=== PATIENT | male | born 1935 | race Caucasian/White ===

== ENCOUNTER 2017-03-11 13:59 | Emergency (ER) | payer MEDICARE, OTHER ==
[~2017-03-11] VITALS: Ht 167.6 cm; Wt 72.5 kg
[~2017-03-11 13:59] MED LIST: AMLO5TAB22 PO; ASPI81TA82 PO; ATOR40TA49 PO; CLOP75 PO; METO50TA PO; OMEP20TA39 PO; TERA5CAP3 PO
[2017-03-11 14:00] VITALS: BP 103/55; PULSE 67; RESP 16; TEMP 99.3; O2SAT 99
[2017-03-11] MEDS ORDERED: LIPI40TA PO (14:18)
[2017-03-11] MEDS ORDERED: TERA5CAP3 PO (14:18)
[2017-03-11] MEDS ORDERED: OMEP20TA93 PO (14:18)
[2017-03-11] MEDS ORDERED: AMLO5TAB2 PO (14:18)
[2017-03-11] MEDS ORDERED: PLAV75TA29 PO (14:18)
--- NOTE | 2017-03-11 14:40 | PD ---
HPI Chief Complaint: Musculoskeletal Complaint Time Seen by Provider: 14:25 Travel History International Travel<30 days: No Contact w/Intl Traveler<30days: No Traveled to known affect area: No History of Present Illness HPI Send 81-year-old man who presents to the emergency department complaining of pain swelling in his right leg. He had a knee replacement done several weeks ago. He's had ecchymosis bruising and swelling on the entire right leg. He had a DVT in the past in his upper extremity when he had his shoulder done. He is on Plavix. He has an IVC filter in place which was placed prior to his knee surgery given his history of previous DVT. He otherwise has been feeling generally well. He's has pain and swelling behind the knee. History Past Medical History Narrative Medical CAD, history of CABG. Social History Alcohol Use: Yes (DAILY 1-4 BEER) Tobacco Use: No Allergies-Medications (Allergen,Severity, Reaction): Coded Allergies: No Known Allergies (Unverified Adverse Reaction, Unknown, 03/11/17) Reported Meds & Prescriptions Reported Meds & Active Scripts Active Reported Omeprazole 20 Mg Tab 20 Mg PO DAILY Terazosin (Terazosin HCl) 5 Mg Cap 5 Mg PO HS Plavix (Clopidogrel Bisulfate) 75 Mg Tab 75 Mg PO DAILY Lipitor (Atorvastatin Calcium) 40 Mg Tab 40 Mg PO HS Amlodipine (Amlodipine Besylate) 5 Mg Tab 5 Mg PO DAILY Review of Systems Except as stated in HPI: all other systems reviewed are Neg Physical Exam Narrative GENERAL: Well-appearing 81 year-old woman, no acute distress. SKIN: Focused skin assessment warm/dry. NECK: Trachea midline. No JVD. CARDIOVASCULAR: Regular rate and rhythm. No murmur appreciated. RESPIRATORY: No accessory muscle use. Clear to auscultation. Breath sounds equal bilaterally. GASTROINTESTINAL: Abdomen soft, non-tender, nondistended. Hepatic and splenic margins not palpable. MUSCULOSKELETAL: No obvious deformities. Minimal Edema and dark ecchymosis in the right lower extremity. A little bit of pain behind the knee. Well-healing incision. NEUROLOGICAL: Awake and alert. No obvious cranial nerve deficits. Motor grossly within normal limits. Normal speech. PSYCHIATRIC: Appropriate mood and affect; insight and judgment normal. Data Data Last Documented VS Vital Signs Date Time Temp Pulse Resp B/P (MAP) Pulse Ox O2 Delivery O2 Flow Rate FiO2 03/11/17 14:00 99.3 67 16 103/55 (71) 99 Room Air Orders Orders Us Leg Venous Doppler (03/11/17 ) MDM Medical Decision Making Medical Screen Exam Complete: Yes Emergency Medical Condition: Yes Differential Diagnosis DVT, swelling from a hematoma, other Narrative Course Medical decision making 81 year-old woman presents emergency Department with pain and swelling in his right leg, rule out DVT. History of upper extremity DVT. He is an IVC filter in place. We'll check ultrasound. Jean-Claude Sarah MD Mar 11, 2017 14:40
--- NOTE | 2017-03-11 15:50 | RADRPT ---
EXAM DATE/TIME: 03/11/2017 15:09 [facility] COMPARISON: No previous studies available for comparison. INDICATIONS : Right leg pain and swelling. MEDICAL HISTORY : Hypercholesterolemia. Hypertension. Gastroesophageal reflux disease. Hearing loss. Transient ische risa attack. Anticoagulant therapy. Prostate cancer. Arthritis. Radiation therapy. Blood transfusions. SURGICAL HISTORY : CABG Back surgery. Bilateral cataract removal. ENCOUNTER: Initial ACUITY: 1 week PAIN SCORE: 4/10 LOCATION: Right leg. TECHNIQUE: Venous ultrasound of the leg was performed from the inguinal ligament to the proximal calf. Real-martin e, color Doppler and spectral tracing, compression and augmentation techniques were used. FINDINGS: There is normal compressibility of the deep venous system from the inguinal region to the proximal ca lf. No echogenic clot is seen in the lumen of the common femoral, femoral, popliteal, and posterior tibial veins. There is a normal response of the venous system to proximal and distal augmentation an d respiration. CONCLUSION: 1. No evidence of deep venous thrombosis. Nithin Vieyra MD on March 11, 2017 at 15:48 Board Certified Radiologist. This report was verified electronically.
--- NOTE | 2017-03-11 16:33 | PD ---
Physical Exam Date Seen by Provider: Mar 11, 2017 Time Seen by Provider: 16:29 Narrative GENERAL: Well-nourished, well-developed male in no acute distress. Afebrile. Ambulatory. SKIN: Focused skin assessment warm/dry. Large amount of ecchymosis of the right lower leg. Well-healed surgical scar over the right knee. HEAD: Normocephalic. EYES: No scleral icterus. No injection or drainage. NECK: Supple, trachea midline. No JVD or lymphadenopathy. CARDIOVASCULAR: Regular rate and rhythm without murmurs, gallops, or rubs. RESPIRATORY: Breath sounds equal bilaterally. No accessory muscle use. MUSCULOSKELETAL: No cyanosis. Mild edema of the right knee.. Mild tenderness to palpation behind the right knee. 2+ dorsalis pedis pulse. Full range of motion of the right knee. Data Data Last Documented VS Vital Signs Date Time Temp Pulse Resp B/P (MAP) Pulse Ox O2 Delivery O2 Flow Rate FiO2 03/11/17 14:00 99.3 67 16 103/55 (71) 99 Room Air Orders Orders Us Leg Venous Doppler (03/11/17 ) Ed Discharge Order (03/11/17 16:28) [facility] Medical Record Reviewed: Yes Supervised Visit with DIANE: No Narrative Course Patient signed out to me pending ultrasound results. In short, this is an 81- year-old male presented to the emergency room for evaluation of right knee pain for the past few days. Denies trauma or injury. He has been in physical therapy for knee surgery 6 weeks ago. Concerned about DVT. He is currently on Plavix and has IVC filter in place for history of DVTs. States pain is minimal and well controlled. Declined anything more than Tylenol for pain. Physical exam is reassuring. There is a large amount of ecchymosis to the right lower leg but no erythema or edema. Patient is 4 range of motion. Right lower extremity is neurovascularly intact with 2+ dorsalis pedis pulse. He was reassured after ultrasound was negative and told to follow-up with his primary care physician. Told to return in 1 week for repeat ultrasound if symptoms persist. He understands and agrees to plan. Diagnosis Primary Impression: Right leg pain Referrals: Primary Care Physician Additional Instruction: Rest and drink plenty of fluids. Take Tylenol as directed, as needed for pain. Follow-up with a primary care physician. Return to the emergency room for worsening symptoms. Disposition: 01 DISCHARGE HOME Condition: Stable Jena Escobar Mar 11, 2017 16:33
== END 2017-03-11 17:00 | disposition home or self-care (01) ==
LOC: NEPD 13:59
DX: M79.604 Pain in right leg (principal); M79.89 Other specified soft tissue disorders; I25.10 Atherosclerotic heart disease of native coronary artery without angina pectoris; Z86.718 Personal history of other venous thrombosis and embolism; Z79.02 Long term (current) use of antithrombotics/antiplatelets; Z79.899 Other long term (current) drug therapy
CPT/HCPCS: 93971; 99284

== ENCOUNTER 2017-04-29 09:54 | Inpatient (IN) | payer MEDICARE, OTHER ==
[2017-04-29] VITALS (10 sets, daily range): BP systolic 157–194; BP diastolic 72–84; PULSE 59–76; RESP 14–18; TEMP 98–98.3; O2SAT 97–98
[~2017-04-29] VITALS: Ht 165.1 cm; Wt 74.2 kg
[~2017-04-29 09:54] MED LIST changes: +AMLO5TAB2 PO; -AMLO5TAB22 PO; -ASPI81TA82 PO; -ATOR40TA49 PO; -CLOP75 PO; +LIPI40TA PO; -METO50TA PO; -OMEP20TA39 PO; +OMEP20TA93 PO; +PLAV75TA29 PO
[2017-04-29] MEDS ORDERED: SODIUM CHLOR 0.9% 1000 ML INJ 1,000 ML IV ONE (10:18)
--- NOTE | 2017-04-29 10:21 | PD ---
HPI Chief Complaint: Neuro Symptoms/ Deficits Time Seen by Provider: 10:18 Travel History International Travel<30 days: No Contact w/Intl Traveler<30days: No Traveled to known affect area: No History of Present Illness HPI The patient is 81 years old. He has a history of hypertension hyperlipidemia prostate cancer and history of TIA as well. The patient's son picked him up today as the patient was on his way to physical therapy. Upon sitting himself and that son's car observation of fatigue and mumbling/slurred speech was observed and the patient was brought here. Symptoms improved somewhat en route to the ER. The patient takes Plavix hours unsure about any other anticoagulant usage. Patient was last seen normal last night. The woke up this morning to attend a doctor's appointment in [place] at 6:30AM and at that time the patient was asleep. Such that the onset of symptoms was at least 4 hours prior to ER arrival. PFSH Past Medical History Hx Anticoagulant Therapy: Yes Arthritis: Yes Cancer: Yes (prostate) Cardiovascular Problems: Yes High Cholesterol: Yes Cerebrovascular Accident: No Diabetes: No Diminished Hearing: Yes (HEARING AIDS OCCASIONALLY) Endocrine: No Gastrointestinal Disorders: Yes Genitourinary: Yes (hx of prostate cancer) Hepatitis: No Hiatal Hernia: No Hypertension: Yes Immune Disorder: No Implanted Vascular Access Dvce: Yes Musculoskeletal: No Neurologic: Yes (tia mar 2014) Psychiatric: No Reproductive: No Respiratory: No Immunizations Current: No Radiation Therapy: Yes Thyroid Disease: No Past Surgical History AICD: No Body Medical Devices: hardware in the back Cardiac Surgery: Yes (quadruple cardiac by-pass) Coronary Artery Bypass Graft: Yes (QUAD BYPASS) Eye Surgery: Yes (ruperto cataract surgery) Joint Replacement: No Pacemaker: No Other Surgery: Yes Social History Alcohol Use: Yes (DAILY 1-4 BEER) Tobacco Use: No Substance Use: No Allergies-Medications (Allergen,Severity, Reaction): Coded Allergies: No Known Allergies (Unverified Adverse Reaction, Unknown, 04/29/17) Reported Meds & Prescriptions Reported Meds & Active Scripts Active Reported Omeprazole 20 Mg Tab 20 Mg PO DAILY Terazosin (Terazosin HCl) 5 Mg Cap 5 Mg PO HS Lipitor (Atorvastatin Calcium) 40 Mg Tab 40 Mg PO HS Amlodipine (Amlodipine Besylate) 5 Mg Tab 5 Mg PO DAILY Review of Systems Except as stated in HPI: all other systems reviewed are Neg General / Constitutional: No: Fever Gastrointestinal: No: Nausea Physical Exam Narrative GENERAL: 81-year-old male mild distress SKIN: Warm and dry. HEAD: Atraumatic. Normocephalic. EYES: Pupils equal and round. No scleral icterus. No injection or drainage. ENT: No nasal bleeding or discharge. Mucous membranes pink and moist. NECK: Trachea midline. No JVD. CARDIOVASCULAR: Regular rate and rhythm. RESPIRATORY: No accessory muscle use. Clear to auscultation. Breath sounds equal bilaterally. GASTROINTESTINAL: Abdomen soft, non-tender, nondistended. Hepatic and splenic margins not palpable. MUSCULOSKELETAL: No gross deformity. Normal ROM. NEUROLOGICAL: The extraocular muscles are normal. The pupils are normal. The speech is slightly dysarthric. There is minimal strength on the left side involving upper extremities however lower extremity exam is unremarkable. PSYCHIATRIC: Appropriate mood and affect; insight and judgment normal. Data Data Last Documented VS VS reviewed Orders Orders Activity Bed Rest (04/29/17 ) Electrocardiogram (04/29/17 ) I-Stat Creatinine (04/29/17 10:18) I-Stat Profile (04/29/17 10:18) Prothrombin Time / Inr (Pt) (04/29/17 10:18) Act Partial Throm Time (Ptt) (04/29/17 10:18) Complete Blood Count With Diff (04/29/17 10:18) Fibrinogen (04/29/17 10:18) Creatine Kinase (Cpk) (04/29/17 10:18) Troponin I (04/29/17 10:18) Type And Screen (04/29/17 10:18) Ct Brain W/O Iv Contrast(Rout) (04/29/17 ) Cta Brain W Iv Contrast W 3d (04/29/17 10:18) Consult Neurology (04/29/17 ) Blood Glucose (04/29/17 10:18) Ecg Monitoring (04/29/17 10:18) Neuro Checks Q2HX12,Q4H (04/29/17 10:18) Nursing Bedside Swallow Assess .ONCE (04/29/17 10:18) Iv Access Insert/Monitor (04/29/17 10:18) NPO (04/29/17 10:18) Oximetry (04/29/17 10:18) Oxygen Administration (04/29/17 10:18) Sodium Chlor 0.9% 1000 Ml Inj (Ns 1000 M (04/29/17 10:18) Resp Oxygen Pako C Titrat 1-4 L (04/29/17 10:18) Cath For Specimen (04/29/17 10:18) (Hub Use Only)Inp Phy Cons/Ref (04/29/17 ) Cta Neck W Iv Contrast W 3d (04/29/17 10:27) Iodixanol 320 Inj (Rad Ct) (Visipaque 32 (04/29/17 10:46) Admit Order (Ed Use Only) (04/29/17 ) Bindery Leadperson / Telemetry QUYNH.Q8H (04/29/17 12:28) Vital Signs (Adult) Q4H (04/29/17 12:28) Activity Oob With Assistance (04/29/17 12:28) Labs Laboratory Tests Test 04/29/17 10:20 White Blood Count 7.7 TH/MM3 Red Blood Count 3.42 MIL/MM3 Hemoglobin 12.2 GM/DL Bedside Hemoglobin 11.9 G/DL Hematocrit 35.2 % Bedside Hematocrit 35.0 % Mean Corpuscular Volume 102.9 FL Mean Corpuscular Hemoglobin 35.6 PG Mean Corpuscular Hemoglobin Concent 34.6 % Red Cell Distribution Width 13.3 % Platelet Count 214 TH/MM3 Mean Platelet Volume 9.3 FL Neutrophils (%) (Auto) 56.7 % Lymphocytes (%) (Auto) 23.1 % Monocytes (%) (Auto) 7.7 % Eosinophils (%) (Auto) 11.8 % Basophils (%) (Auto) 0.7 % Neutrophils # (Auto) 4.4 TH/MM3 Lymphocytes # (Auto) 1.8 TH/MM3 Monocytes # (Auto) 0.6 TH/MM3 Eosinophils # (Auto) 0.9 TH/MM3 Basophils # (Auto) 0.1 TH/MM3 CBC Comment DIFF FINAL Differential Comment Prothrombin Time 10.0 SEC Prothromb Time International Ratio 1.0 RATIO Activated Partial Thromboplast Time 26.1 SEC Fibrinogen 346 mg/dL Bedside Sodium 134 MMOL/L Bedside Potassium 5.0 MMOL/L Bedside Chloride 99 MMOL/L Bedside Blood Urea Nitrogen 19 MG/DL Bedside Creatinine 1.5 MG/DL Bedside Glucose 98 MG/DL Hemoglobin A1c 4.8 % Total Creatine Kinase 93 U/L Troponin I 0.02 NG/ML MDM Medical Screen Exam Complete: Yes Emergency Medical Condition: Yes Differential Diagnosis Stroke, TIA, metabolic abnormality Narrative Course CBC & BMP Diagram 04/29/17 10:20 The patient is not a TPA candidate. He'll be admitted to the hospitalist service. On Plavix and will require neurology R hospitalist determination for usage aspirin. Critical Care Narrative Aggregate critical care time was 40 minutes. Time to perform other separately billable procedures was not included in the critical care time. My time did not include minutes spent treating any other patients simultaneously or on activities that did not directly contribute to the patient's treatment. The services I provided to this patient were to treat and/or prevent clinically significant deterioration that could result in: Permanent weakness I provided critical care services requiring my management, as noted below: Chart data review, documentation time, medication orders and management, vital sign assessments/reviewing monitor data, ordering and reviewing lab tests, ordering and interpreting/reviewing x-rays and diagnostic studies, care of the patient and discussion of the patient with the admitting physicians. Stroke Alert NIHSS NIH Stroke Scale Result: 2 NIHSS Time Completed: 10:20 Diagnosis Diagnosis: Primary Impression: Chronic ischemic right MCA stroke Additional Impressions: TIA (transient ischemic attack) Carotid artery stenosis Scripts Thiamine HCl (Gnp Vitamin B-1) 100 Mg Tab 100 MG PO DAILY for Alcohol Detox, #30 TAB Prov: Tucker Merino MD 04/30/17 Dipyridamole-Aspirin (Aggrenox) 200-25 Mg Cap 1 CAP PO Q12HR for Prevent Blood Clot, #60 CAP Prov: Tucker Merino MD 04/30/17 Saul Sanchez MD Apr 29, 2017 10:21
--- NOTE | 2017-04-29 10:40 | RADRPT ---
EXAM DATE/TIME: 04/29/2017 10:26 [facility] COMPARISON: CT BRAIN W/O CONTRAST, April 12, 2014, 20:01. INDICATIONS : Stroke alert, slurred speech and aphasia. RADIATION DOSE: 36.29 CTDIvol (mGy) This report was called by Dr. Zhang to Sanchez at 1035 MEDICAL HISTORY : Non-responsive. SURGICAL HISTORY : Non-responsive. ENCOUNTER: Initial ACUITY: 1 day PAIN SCALE: Non-responsive LOCATION: cranial TECHNIQUE: Multiple contiguous axial images were obtained of the head. Using automated exposure control and adj ustment of the mA and/or kV according to patient size, radiation dose was kept as low as reasonably a chievable to obtain optimal diagnostic quality images. DICOM format image data is available electro nically for review and comparison. FINDINGS: There is encephalomalacia in the mid to high convexity right parietal region. There is no evidence of intracranial hemorrhage or mass. There is nothing to suggest acute infarction. The extracranial stru ctures appear benign and intact. CONCLUSION: Old right parietal stroke. No acute intracranial findings. Musa Zhang MD on April 29, 2017 at 10:34 Board Certified Radiologist. This report was verified electronically.
[2017-04-29] MEDS ORDERED: IODIXANOL 320 MG/ML 10 ML VIAL (for Rad CT) IVCONTRAST ONE (10:46)
[2017-04-29 10:51] LABS: AUTOMATED NEUTROPHIL # 4.4 TH/MM3 (1.8-7.7); BASOPHIL # 0.1 TH/MM3 (0-0.2); BASOPHIL % 0.7 % (0.0-2.0); EOSINOPHIL # 0.9 TH/MM3 (0-0.4); EOSINOPHIL % 11.8 % (0.0-4.0); HEMATOCRIT 35.2 % (39.0-51.0); HEMOGLOBIN 12.2 GM/DL (13.0-17.0); LYMPH % 23.1 % (9.0-44.0); LYMPHOCYTE # 1.8 TH/MM3 (1.0-4.8); MEAN CELL VOLUME 102.9 FL (80.0-100.0); MEAN CORPUSCULAR HEMOGLOBIN 35.6 PG (27.0-34.0); MEAN CORPUSCULAR HGB CONC 34.6 % (32.0-36.0); MEAN PLATELET VOLUME 9.3 FL (7.0-11.0); MONO % 7.7 % (0.0-8.0); MONOCYTE # 0.6 TH/MM3 (0-0.9); NEUT % 56.7 % (16.0-70.0); PLATELET COUNT 214 TH/MM3 (150-450); RED BLOOD COUNT 3.42 MIL/MM3 (4.50-5.90); RED CELL DISTRIBUTION WIDTH 13.3 % (11.6-17.2); WHITE BLOOD COUNT 7.7 TH/MM3 (4.0-11.0)
--- NOTE | 2017-04-29 11:00 | RADRPT ---
EXAM DATE/TIME: 04/29/2017 10:26 [facility] COMPARISON: MRA BRAIN W/O CONTRAST, April 13, 2014, 16:56. INDICATIONS : Stroke alert. Slurred speech, aphasia. IV CONTRAST: 90 cc Visipaque (iodixanol) IV RADIATION DOSE: 28.04 CTDIvol (mGy) MEDICAL HISTORY : Non-responsive. SURGICAL HISTORY : Non-responsive. ENCOUNTER: Initial ACUITY: 1 day PAIN SCALE: 0/10 LOCATION: cranial TECHNIQUE: Volumetric scanning was performed using a multi-row detector CT scanner. The data was post processed with a variety of visualization algorithms including full volume maximum intensity projection, multi -planar sliding thin slab reformation, curved planar reformation, and surface rendering techniques. Using automated exposure control and adjustment of the mA and/or kV according to patient size, radiat ion dose was kept as low as reasonably achievable to obtain optimal diagnostic quality images. DICO M format image data is available electronically for review and comparison. FINDINGS: Anterior circulation: Diffusely calcified intracranial carotid arteries with likely moderate stenosis om the right. Flow ex tends to the middle and anterior cerebral arteries. Left A1 segment is diffusely small in dre similar to prior exam consistent with a hyperplasia. There is no evidence for aneurysm, vessel truncation or stenosis, and no evidence for vascular malformation. Posterior circulation: Symmetric distal vertebral arteries with flow extending to basilar artery. origin of the left FX ARTIST. There is no evidence for aneurysm, vessel truncation or stenosis, and no evidence for vascular m alformation. CONCLUSION: 1. Diffusely calcified intracranial carotid arteries with likely moderate stenosis on the right. 2. Redemonstration of hypoplastic left A1 segment. 3. No large vessel occlusion or significant intracranial flow-limiting stenosis. Ej Veliz MD on April 29, 2017 at 10:53 Board Certified Radiologist. This report was verified electronically.
--- NOTE | 2017-04-29 11:11 | RADRPT ---
EXAM DATE/TIME: 04/29/2017 10:26 [facility] COMPARISON: No previous studies available for comparison. INDICATIONS : Stoke alert. Slurred speech, aphasia IV CONTRAST: 90 cc Visipaque (iodixanol) IV RADIATION DOSE: 28.04 CTDIvol (mGy) MEDICAL HISTORY : Non-responsive. SURGICAL HISTORY : Non-responsive. ENCOUNTER: Initial ACUITY: 1 day PAIN SCALE: 0/10 LOCATION: neck Elevated flow velocities and ICA/CCA ratios have been found to correlate with increased degrees of vessel stenosis, calculated as percentage of diameter relative to a normal segment of distal ICA/CCA. TECHNIQUE: Volumetric scanning was performed using a multirow detector CT scanner. The data was post processed with a variety of visualization algorithms including full-volume maximum intensity projection, multip lanar sliding thin-slab reformation, curved-planar reformation, and surface-rendering techniques. Us ing automated exposure control and adjustment of the mA and/or kV according to patient size, radiatio n dose was kept as low as reasonably achievable to obtain optimal diagnostic quality images. DICOM f ormat image data is available electronically for review and comparison. FINDINGS: AORTIC ARCH: 3 vessel arch anatomy with calcified plaque at the origin of the right brachiocephalic and left commo n carotid arteries. No significant flow-limiting stenosis. RIGHT CAROTID: Scattered calcified plaque in the distal common carotid artery without significant flow-limiting sten osis. Diffuse calcified plaque in the carotid bulb extending to the origin of the internal and heat treat technician al carotid arteries. The internal carotid origin plaque is ulcerated. There is resultant up to 50% st enosis of the internal carotid origin. Flow extends to the skull base. External carotid artery origin is severely stenosed. LEFT CAROTID: Scattered mixed plaque in the distal common carotid artery without significant flow-limiting stenosis . Calcified plaque in the distal bulb extending to the origin of the internal and external carotid ar teries. There is resultant approximate 60% stenosis of the left internal carotid origin likely exagge rated by some tortuosity. Flow extends to the skull base. There is moderate stenosis of the external carotid origin. VERTEBRALS: Asymmetric which arteries with small caliber left vertebral artery. There is mild stenosis of the lef t vertebral origin secondary to calcified plaque. Left vertebral artery appears to terminate in PICA. CONCLUSION: 1. Calcified plaque in the right carotid bulb extending to the origin of the internal and external ca rotid arteries. There is a prominent ulcerated plaque in the right internal carotid origin. Resultant up to 50% stenosis of the right internal carotid origin. 2. Calcified plaque in the left carotid bulb extending to the origin of the internal and external car otid arteries. Resultant up to 60% stenosis of the left internal carotid origin likely exaggerated by some tortuosity. 3. Dominant right vertebral artery. Ej Veliz MD on April 29, 2017 at 10:58 Board Certified Radiologist. This report was verified electronically.
[2017-04-29 11:18] LABS: TROPONIN I 0.02 NG/ML (0.02-0.05)
[2017-04-29] MEDS ORDERED: SODIUM CHLORIDE 0.9% FLUSH 10 ML FLUSH IV FLUSH PRN (12:30)
[2017-04-29] MEDS ORDERED: DEXTROSE 50% IN WATER 50 ML VIAL(D50) IV PUSH PRN (12:30)
[2017-04-29] MEDS ORDERED: ENALAPRILAT 1.25 MG/ML VIAL IV PUSH PRN (12:30)
[2017-04-29] MEDS ORDERED: GLUCAGON 1 MG/ML VIAL OTHER PRN (12:30)
[2017-04-29] MEDS ORDERED: BISACODYL 10 MG SUPP RECTAL PRN (12:45)
[2017-04-29] MEDS ORDERED: SENNOSIDES 8.6 MG TAB PO PRN (12:45)
[2017-04-29] MEDS ORDERED: ONDANSETRON HCL 4 MG/2 ML VIAL IVP PRN (12:45)
[2017-04-29] MEDS ORDERED: NALOXONE HCL 0.4 MG/ML AMP IV PUSH PRN (12:45)
[2017-04-29] MEDS ORDERED: LACTULOSE SYRUP 20 GM/30 ML CUP PO PRN (12:45)
[2017-04-29] MEDS ORDERED: ACETAMINOPHEN 325 MG TAB PO PRN (12:45)
[2017-04-29] MEDS: SODIUM CHLOR 0.9% 1000 ML INJ 1,000 ML IV SCH (13:00)
--- NOTE | 2017-04-29 13:44 | HHI.HP ---
HPI Service [facility] Primary Care Physician Unknown Admission Diagnosis TIA Diagnoses: Chief Complaint: Strokelike symptoms Travel History International Travel<30 Days: No Contact w/Intl Traveler <30 Da: No Traveled to Known Affected Are: No History of Present Illness This is a 81-year-old male with a history of TIA, hyperlipidemia, hypertension and prostate cancer status post radiation therapy. Patient recently had right knee surgery and was on his way to outpatient physical therapy when his son noted patient looking tired and mumbling with slurred speech. He was disoriented and had difficulty writing check. He was immediately brought to the emergency room room and over the course of time his symptoms resolved. At this time, he has no complaints. He swears compliance with medications though he is not sure what kind of antiplatelet he is on maybe Plavix. He was on aspirin before. Also given Eliquis for DVT treatment 2 years ago after undergoing left shoulder surgery. All other systems reviewed negative. Seen with family. Son provided most of the history. Review of Systems Except as stated in HPI: all other systems reviewed are Neg Past Family Social History Past Medical History As previously mentioned Past Surgical History As previously mentioned. Cataract surgery, back surgery and IVC filter prior to right knee surgery Reported Medications Reported Meds & Active Scripts Active Reported Omeprazole 20 Mg Tab 20 Mg PO DAILY Terazosin (Terazosin HCl) 5 Mg Cap 5 Mg PO HS Lipitor (Atorvastatin Calcium) 40 Mg Tab 40 Mg PO HS Amlodipine (Amlodipine Besylate) 5 Mg Tab 5 Mg PO DAILY Allergies: Coded Allergies: No Known Allergies (Unverified Adverse Reaction, Unknown, 04/29/17) Family History No CVA Social History Does not smoke. Drinks 1-4 beers a day. Physical Exam Vital Signs Vital Signs Date Time Temp Pulse Resp B/P (MAP) Pulse Ox O2 Delivery O2 Flow Rate FiO2 04/29/17 12:12 69 18 166/73 (104) 98 Nasal Cannula 2.00 04/29/17 11:43 68 18 194/77 (116) 97 Nasal Cannula 2.00 04/29/17 10:30 97 Room Air 1/9/18 10:30 97 Room Air 04/29/17 10:22 98 Nasal Cannula 2.00 04/29/17 10:22 98 2.00 04/29/17 10:17 73 18 192/78 (116) 98 Room Air 04/29/17 10:15 87 18 97 Room Air 04/29/17 09:56 98.0 65 14 157/72 (100) 97 Physical Exam GENERAL: This is a well-nourished, well-developed patient, in no apparent distress. SKIN: No rashes, ecchymoses or lesions. Cool and dry. HEAD: Atraumatic. Normocephalic. No temporal or scalp tenderness. EYES: Pupils equal round and reactive. Extraocular motions intact. No scleral icterus. No injection or drainage. ENT: Nose without bleeding, purulent drainage or septal hematoma. Throat without erythema, tonsillar hypertrophy or exudate. Uvula midline. Airway patent. NECK: Trachea midline. No JVD or lymphadenopathy. Supple, nontender, no meningeal signs. CARDIOVASCULAR: Regular rate and rhythm without murmurs, gallops, or rubs. RESPIRATORY: Clear to auscultation. Breath sounds equal bilaterally. No wheezes , rales, or rhonchi. GASTROINTESTINAL: Abdomen soft, non-tender, nondistended. No guarding. MUSCULOSKELETAL: Extremities without clubbing, cyanosis, or edema. No joint tenderness, effusion, or edema noted. No calf tenderness. Negative Homans sign bilaterally. NEUROLOGICAL: Awake and alert. Cranial nerves II through XII intact. Motor and sensory grossly within normal limits. Five out of 5 muscle strength in all muscle groups. Normal speech. Laboratory Laboratory Tests Test 04/29/17 10:20 White Blood Count 7.7 Red Blood Count 3.42 Hemoglobin 12.2 Bedside Hemoglobin 11.9 Hematocrit 35.2 Bedside Hematocrit 35.0 Mean Corpuscular Volume 102.9 Mean Corpuscular Hemoglobin 35.6 Mean Corpuscular Hemoglobin Concent 34.6 Red Cell Distribution Width 13.3 Platelet Count 214 Mean Platelet Volume 9.3 Neutrophils (%) (Auto) 56.7 Lymphocytes (%) (Auto) 23.1 Monocytes (%) (Auto) 7.7 Eosinophils (%) (Auto) 11.8 Basophils (%) (Auto) 0.7 Neutrophils # (Auto) 4.4 Lymphocytes # (Auto) 1.8 Monocytes # (Auto) 0.6 Eosinophils # (Auto) 0.9 Basophils # (Auto) 0.1 CBC Comment DIFF FINAL Differential Comment Prothrombin Time 10.0 Prothromb Time International Ratio 1.0 Activated Partial Thromboplast Time 26.1 Fibrinogen 346 Bedside Sodium 134 Bedside Potassium 5.0 Bedside Chloride 99 Bedside Blood Urea Nitrogen 19 Bedside Creatinine 1.5 Bedside Glucose 98 Total Creatine Kinase 93 Troponin I 0.02 Result Diagram: 04/29/17 1020 Imaging Last Impressions Neck CTA 04/29/17 1027 Signed Impressions: Service Date/Time: Saturday, April 29, 2017 10:26 - CONCLUSION: 1. Calcified plaque in the right carotid bulb extending to the origin of the internal and external carotid arteries. There is a prominent ulcerated plaque in the right internal carotid origin. Resultant up to 50%% stenosis of the right internal carotid origin. 2. Calcified plaque in the left carotid bulb extending to the origin of the internal and external carotid arteries. Resultant up to 60%% stenosis of the left internal carotid origin likely exaggerated by some tortuosity. 3. Dominant right vertebral artery. Ej Veliz MD Head CTA 04/29/17 1018 Signed Impressions: Service Date/Time: Saturday, April 29, 2017 10:26 - CONCLUSION: 1. Diffusely calcified intracranial carotid arteries with likely moderate stenosis on the right. 2. Redemonstration of hypoplastic left A1 segment. 3. No large vessel occlusion or significant intracranial flow-limiting stenosis. Ej Veliz MD Head Magnetic Resonance Angiography 04/29/17 0000 Signed Impressions: Service Date/Time: Saturday, April 29, 2017 14:48 - CONCLUSION: 1. 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 2. Otherwise, intracranial vessels are all patent no aneurysmal disease. No change from prior. Ricky Becerra MD Head CT 04/29/17 0000 Signed Impressions: Service Date/Time: Saturday, April 29, 2017 10:26 - CONCLUSION: Old right parietal stroke. No acute intracranial findings. Musa Zhang MD Carotid Artery Ultrasound 04/29/17 0000 Signed Impressions: Service Date/Time: Saturday, April 29, 2017 15:11 - CONCLUSION: 1. Extensive calcification throughout both carotid systems. 2. Doppler velocities would suggest high-grade stenosis in the external carotid arteries bilaterally. There does not appear to be a hemodynamically significant stenosis in the internal carotid despite the dense calcification, however. 3. Waveforms of the cervical vessels show very little diastolic flow, a pattern more characteristic of the external circulation and suggestive of a high resistance vascular flow. This has progressed from the 2014 exam. Findings in all 4 cervical vessels may indicate increased intracranial pressure. CTA of the cervical vessels could be performed for further characterization if clinically warranted Ricky Becerra MD Brain MRI 04/29/17 0000 Signed Impressions: Service Date/Time: Saturday, April 29, 2017 14:48 - CONCLUSION: 1. Stable area of infarction involving the right posterior temporal, occipital and parietal lobes. 2. No acute hemorrhage, mass infarction. MD Angela Gordon VTE Risk Assessment Caprini VTE Risk Assessment: Mod/High Risk (score >= 2) Caprini Risk Assessment Model Point Value = 1 Point Value = 2 Point Value = 3 Point Value = 5 Age 41-60 Minor surgery BMI > 25 kg/m2 Swollen legs Varicose veins or History of unexplained or recurrent spontaneous Oral contraceptives or hormone replacement Sepsis (< 1 month) Serious lung disease, including pneumonia (< 1 month) Abnormal pulmonary function Acute myocardial infarction Congestive heart failure (< 1 month) History of inflammatory bowel disease Medical patient at bed rest Age 61-74 Arthroscopic surgery Major open surgery (> 45 min) Laparoscopic surgery (> 45 min) Malignancy Confined to bed (> 72 hours) Immobilizing plaster cast Central venous access Age >= 75 History of VTE Family history of VTE Factor V Leiden Prothrombin [id number] Lupus anticoagulant Anticardiolipin antibodies Elevated serum homocysteine Heparin-induced thrombocytopenia Other congenital or acquired thrombophilia Stroke (< 1 month) Elective arthroplasty Hip, pelvis, or leg fracture Acute spinal cord injury (< 1 month) Prophylaxis Regimen Total Risk Factor Score Risk Level Prophylaxis Regimen 0-1 Low Early ambulation 2 Moderate Order ONE of the following: *Sequential Compression Device (SCD) *Heparin 5000 units SQ BID 3-4 Higher Order ONE of the following medications: *Heparin 5000 units SQ TID *Enoxaparin/Lovenox 40 mg SQ daily (WT < 150 kg, CrCl > 30 mL/min) *Enoxaparin/Lovenox 30 mg SQ daily (WT < 150 kg, CrCl > 10-29 mL/min) *Enoxaparin/Lovenox 30 mg SQ BID (WT < 150 kg, CrCl > 30 mL/min) AND/OR *Sequential Compression Device (SCD) 5 or more Highest Order ONE of the following medications: *Heparin 5000 units SQ TID (Preferred with Epidurals) *Enoxaparin/Lovenox 40 mg SQ daily (WT < 150 kg, CrCl > 30 mL/min) *Enoxaparin/Lovenox 30 mg SQ daily (WT < 150 kg, CrCl > 10-29 mL/min) *Enoxaparin/Lovenox 30 mg SQ BID (WT < 150 kg, CrCl > 30 mL/min) AND *Sequential Compression Device (SCD) Assessment and Plan Problem List: (1) TIA (transient ischemic attack) ICD Code: G45.9 - TIA (transient ischemic attack) Status: Acute (2) Accelerated hypertension ICD Code: I10 - Accelerated hypertension Status: Acute Assessment and Plan This is a 81-year-old male with a history of TIA, hyperlipidemia and hypertension. He presented with strokelike symptoms resolved over a brief period of time while in the ED. TIA vs CVA with hx TIA. Neuro symptoms are resolved. Discussed with neurology , aspirin 1 and start Aggrenox and obtain stroke workup including EEG. Permissive hypertension. Consult vascular surgery regarding abnormal bilateral carotid surgery with ulcerated plaque of the right carotid. Obtain carotid sonogram. Check A1c and lipid profile. Risk factor modifications. PT, OT and ST eval. Mild hyponatremia sodium 134. Monitor Chronic kidney disease stage III. Nonoliguric. Continue IV hydration specially after receiving contrast. Avoid nephrotoxins. Repeat BMP and mag in the morning. Follow-up urinalysis. Elevated MCV with history of alcohol abuse. Counseled. CIWA protocol. Chronic medical conditions of hyperlipidemia, hypertension and prostate cancer status post radiation therapy. Continue outpatient medications as appropriate DVT prophylaxis with SCD. Pharmacological prophylaxis if okay with neurology pending ischemic workup Discussed Condition With Patient, family and neurology Tucker Merino MD Apr 29, 2017 13:44
[2017-04-29] MEDS ORDERED: LORazepam 2 MG TAB PO PRN (13:45)
[2017-04-29] MEDS ORDERED: LORazepam 2 MG/ML VIAL IV PUSH PRN ×4 (13:45)
[2017-04-29] MEDS ORDERED: HALOPERIDOL LACTATE 5 MG/ML AMP IM PRN (13:45)
[2017-04-29] MEDS ORDERED: LORazepam 1 MG TAB PO PRN (13:45)
[2017-04-29] MEDS ORDERED: FLUMAZENIL 0.5 MG/5 ML VIAL IV PUSH PRN (13:45)
[2017-04-29] MEDS ORDERED: CLOPIDOGREL 75 MG TAB PO ONE (14:00)
[2017-04-29] MEDS ORDERED: LORazepam 2 MG/ML VIAL IV PUSH ONE (14:00)
[2017-04-29] MEDS: ACETAMINOPHEN 325 MG TAB PO PRN (14:41)
[2017-04-29] MEDS ORDERED: ASPIRIN 81 MG CHEW TAB CHEW ONE (15:00)
--- NOTE | 2017-04-29 15:47 | RADRPT ---
EXAM DATE/TIME: 04/29/2017 14:48 [facility] COMPARISON: MRA BRAIN W/O CONTRAST, April 13, 2014, 16:56. INDICATIONS : Aphasia. MEDICAL HISTORY : Carcinoma, prostate. SURGICAL HISTORY : CABG Fusion, lumbar. ENCOUNTER: Initial ACUITY: 1 day PAIN SCORE: 0/10 LOCATION: head Please note a normal MRA of the brain does not entirely exclude the possibility of a small aneurysm, nor the possibility of distal intracranial vessel disease. TECHNIQUE: 3D time of flight MRA was performed. Source images, multiplanar STS MIP, and 3D volume MIP reconstru ctions were reviewed. FINDINGS: There is excellent visualization of the major intracranial arteries out to the second-order branch ve ssels. There is no evidence for aneurysm, vessel truncation or stenosis, and no evidence for vascula r malformation. Anatomic variant of the [place] of [place] with a congenitally atretic left A1 segment. Left P1 segment appears to be congenitally absent as does the right posterior communicating artery. The sole blood s upply to the left posterior cerebral artery is via the widely patent left posterior communicating art jose. Patient is right vertebral dominant with a very diminutive but patent left vertebral. CONCLUSION: 1. 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 2. Otherwise, intracranial vessels are all patent no aneurysmal disease. No change from prior. Ricky Becerra MD on April 29, 2017 at 15:37 Board Certified Radiologist. This report was verified electronically.
--- NOTE | 2017-04-29 15:56 | RADRPT ---
EXAM DATE/TIME: 04/29/2017 15:11 [facility] COMPARISON: US CAROTID ARTERIES, April 12, 2014, 21:55. INDICATIONS : Cerebrovascular accident. MEDICAL HISTORY : Hypercholesterolemia. Hypertension. Arthritis. Prostate cancer. SURGICAL HISTORY : CABG. IVC Filter placement. Lower back surgery. ENCOUNTER: Subsequent ACUITY: 1 day PAIN SCORE: 1/10 LOCATION: Bilateral neck PEAK SYSTOLIC VELOCITIES (cm/sec): ICA/CCA RATIO: Right: 1.1 Left: 1.6 ICA: Right: 124 Left: 197 CCA: Right: 114 Left: 127 ECA: Right: 299 Left: 249 VERTEBRAL: Right: 47 antegrade Left: 65 antegrade Elevated flow velocities and ICA/CCA ratios have been found to correlate with increased degrees of vessel stenosis, calculated as percentage of diameter relative to a normal segment of distal ICA/CCA FINDINGS: RIGHT CAROTID: Dense calcification throughout the right carotid system including the common carotid artery, carotid bulb and both the internal and external carotids. Doppler waveforms show somewhat high resistance in the internal carotid distribution. LEFT CAROTID: Dense atherosclerotic calcification throughout the left carotid system again, including the common ca rotid, carotid bulb as well as the proximal internal and external carotid vessels. Again, the interna l carotid wave form is somewhat high resistance. VERTEBRAL ARTERIES: Antegrade flow is seen in both vertebral arteries. Waveforms show high resistance. MISCELLANEOUS: None. CONCLUSION: 1. Extensive calcification throughout both carotid systems. 2. Doppler velocities would suggest high-grade stenosis in the external carotid arteries bilaterally. There does not appear to be a hemodynamically significant stenosis in the internal carotid despite t he dense calcification, however. 3. Waveforms of the cervical vessels show very little diastolic flow, a pattern more characteristic o f the external circulation and suggestive of a high resistance vascular flow. This has progressed fr om the 2013 exam. Findings in all 4 cervical vessels may indicate increased intracranial pressure. CT A of the cervical vessels could be performed for further characterization if clinically warranted Ricky Becerra MD on April 29, 2017 at 15:46 Board Certified Radiologist. This report was verified electronically.
[2017-04-29 16:11] LABS: HEMOGLOBIN A1C 4.8 % (4.3-6.0)
--- NOTE | 2017-04-29 16:11 | RADRPT ---
EXAM DATE/TIME: 04/29/2017 14:48 [facility] COMPARISON: MRI BRAIN W/O CONTRAST, April 13, 2014, 16:56. CT BRAIN W/O CONTRAST, April 29, 2017, 10:26. INDICATIONS : Aphasia. History of old right parietal infarct. MEDICAL HISTORY : Carcinoma, prostate. SURGICAL HISTORY : Fusion, lumbar. CABG ENCOUNTER: Initial ACUITY: 1 day PAIN SCORE: 0/10 LOCATION: head TECHNIQUE: Multiplanar, multisequence MRI of the brain was performed without contrast. FINDINGS: CEREBRUM: The ventricles are normal for age. No evidence of midline shift, mass lesion, hemorrhage or acute in farction. There is a stable moderate sized area of encephalomalacia involving the right posterior tem poral, occipital and parietal lobes with surrounding gliosis. No extraaxial fluid collections are see n. The pituitary gland and suprasellar cistern are normal in configuration. WHITE MATTER: No significant signal abnormalities are seen in the white matter. POSTERIOR FOSSA: The cerebellum and brainstem are intact. The 4th ventricle is midline. The cerebellopontine angle is unremarkable. The cerebellar tonsils are normal in position. DIFFUSION IMAGING: No focal areas of restricted diffusion are seen. No evidence of acute infarction. EXTRACRANIAL: The visualized portions of the orbits and paranasal sinuses are unremarkable. CONCLUSION: 1. Stable area of infarction involving the right posterior temporal, occipital and parietal lobes. 2. No acute hemorrhage, mass infarction. Pastor Muller MD on April 29, 2017 at 16:06 Board Certified Radiologist. This report was verified electronically.
--- NOTE | 2017-04-29 16:26 | EKG ---
Date Performed: 04/29/2017 Time Performed: 12:06:45 PTAGE: 81 years EKG: Sinus rhythm WITH FREQUENT VENTRICULAR PREMATURE COMPLEXES LEFT ANTERIOR FASCICULAR BLOCK LEFT VENTRICULAR HYPERT ROPHY AND ST-T CHANGE ABNORMAL ECG PREVIOUS TRACING : 06/10/2014 07.47 Compared to the previous tracing frequent PVCs present DOCTOR: Antoinette Monk Interpretating Date/Time 04/29/2017 16:25:27
--- NOTE | 2017-04-29 16:46 | PD.CONS ---
History of Present Illness Service Neurology Consult Requested By er Reason for Consult stroke alert Primary Care Physician Unknown History of Present Illness 81-year-old male complains of fall. brought in for altered speech. difficulty expressing himself, occurred on the way to therapy. onset unknown, thus not a tpa candidate. symptoms resolved over the course of the day. takes plavix daily. has not missed any doses. hx of previous rt mca stroke. ct brain- old infarct. glucose 98. they are visiting his daughter from [place]. denies any barreto, focal weakness, vision loss. Past Medical History Hypertension CADstatus post CABG 12 years ago Chronic kidney diseasesecondary to contrast dye used for coronary angiogram Prostate cancerdiagnosed 2 years ago. Status post radiation therapy hx of GI bleed 03/2014 GI bleed was secondary to post polypectomy. Multiple colonic polyps Diverticulosis Radiation proctitis Internal hemorrhoids Past Surgical History EGDs and colonoscopy Coronary angiogram Back surgery CABG Bilateral cataract surgery Reported Medications Patient's medications as on EMR reviewed. Patient also is able to recall the names and doses of his medications. Allergies: Coded Allergies: No Known Allergies (Unverified , 04/12/14) Social History Denies smoking. Reports he drinks about 3-5 beers a day. Denies any alcohol abuse or drug abuse. Still driving. Review of Systems All other ROS: ROS reviewed as documented in chart Past Family Social History Allergies: Coded Allergies: No Known Allergies (Unverified , 04/12/14) Review of Systems All other ROS: ROS reviewed as documented in chart Past Family Social History Allergies: Coded Allergies: No Known Allergies (Unverified Adverse Reaction, Unknown, 04/29/17) Active Ordered Medications Current Medications Medications (Trade) Dose Ordered Sig/Lindsey Route Start Time Stop Time Status Last Admin (NS Flush) 2 ml BID IV FLUSH 04/29/17 21:00 (NS Flush) 2 ml UNSCH PRN IV FLUSH 04/29/17 12:30 Sodium Chloride 1,000 ml @ 70 mls/hr [id number] IV 04/29/17 13:00 (Vasotec Inj) 1.25 mg Q4H PRN IV PUSH 04/29/17 12:30 (NovoLOG SUPPLEMENTAL SCALE) 1 ACHS SQ 04/29/17 17:00 (D50w (Vial) Inj) 50 ml UNSCH PRN IV PUSH 04/29/17 12:30 (Glucagon Inj) 1 mg UNSCH PRN OTHER 04/29/17 12:30 (Tylenol) 650 mg Q4H PRN PO 04/29/17 12:45 (Zofran Inj) 4 mg Q6H PRN IVP 04/29/17 12:45 (Tylenol) 650 mg Q6H PRN PO 04/29/17 12:45 04/29/17 14:41 (Narcan Inj) 0.4 mg UNSCH PRN IV PUSH 04/29/17 12:45 (Netta-Colace) 1 tab BID PO 04/29/17 21:00 (Senokot) 17.2 mg Q12H PRN PO 04/29/17 12:45 (Dulcolax Supp) 10 mg DAILY PRN RECTAL 04/29/17 12:45 (Lactulose Liq) 30 ml DAILY PRN PO 04/29/17 12:45 (Lipitor) 40 mg HS PO 04/29/17 21:00 (Protonix) 20 mg DAILY PO 04/30/17 09:00 (Folate) 1 mg DAILY PO 04/30/17 09:00 05/05/17 08:59 (Vitamin B1) 100 mg DAILY PO 04/30/17 09:00 (Theragran M Tab) 1 tab DAILY PO 04/30/17 09:00 05/05/17 08:59 (Romazicon Inj) 0.2 mg Q1M PRN IV PUSH 04/29/17 13:45 (Ativan) 1 mg Q4H PRN PO 04/29/17 13:45 (Ativan Inj) 1 mg Q4H PRN IV PUSH 04/29/17 13:45 (Ativan) 2 mg Q2H PRN PO 04/29/17 13:45 (Ativan Inj) 2 mg Q2H PRN IV PUSH 04/29/17 13:45 (Ativan Inj) 2 mg Q1H PRN IV PUSH 04/29/17 13:45 (Ativan Inj) 2 mg Q15M PRN IV PUSH 04/29/17 13:45 (Haldol Inj) 2 mg Q15M PRN IM 04/29/17 13:45 (Aggrenox 200-25 Mg) 1 cap Q12HR PO 04/29/17 21:00 Exam I&O / VS Vital Signs Date Time Temp Pulse Resp B/P (MAP) Pulse Ox O2 Delivery O2 Flow Rate FiO2 04/29/17 14:14 73 18 193/84 (120) 98 Nasal Cannula 2.00 04/29/17 12:12 69 18 166/73 (104) 98 Nasal Cannula 2.00 04/29/17 11:43 68 18 194/77 (116) 97 Nasal Cannula 2.00 04/29/17 10:30 97 Room Air 04/29/17 10:30 97 Room Air 04/29/17 10:22 98 Nasal Cannula 2.00 04/29/17 10:22 98 2.00 04/29/17 10:17 73 18 192/78 (116) 98 Room Air 04/29/17 10:15 87 18 97 Room Air 04/29/17 09:56 98.0 65 14 157/72 (100) 97 General: Alert and Oriented, No acute distress Eye: PERRL Respiratory: Lungs CTA, Non-labored respirations Cardiology: Normal rate Musculoskeletal: ROM Neurologic: Alert, Oriented, Normal sensory, Gag reflex normal, Normal DTR's Psychiatric: Cooperative, Appropriate mood & affect, Normal judgement Exam Comments alert, articualte, ox 2-3, follows. eomi, face sym, no drift in any ext, mild increased tone ue L>rt, no tremors, gait not assessed 2/2 fall risk Review/Management Diagnosis/Plan: (1) TIA (transient ischemic attack) ICD Codes: G45.9 - TIA (transient ischemic attack) Status: Acute Plan: could be 2/2 left ica stenosis with expressive aphasia type symptoms also, with significant rt ica intracranial dz r/o post-stroke sz recs vascular surgery eval of carotids change to aggrenox; watch for any gi blkeeding lipid panel tele ivf bp control p.t. d/w pt/spouse/step-daughter follow exam (2) Carotid artery stenosis ICD Codes: I65.29 - Carotid artery stenosis Status: Acute (3) Accelerated hypertension ICD Codes: I10 - Accelerated hypertension Status: Acute (4) Chronic ischemic right MCA stroke ICD Codes: Z86.73 - Chronic ischemic right MCA stroke Status: Chronic Simon Carbone MD Apr 29, 2017 16:46
[2017-04-29] MEDS: INSULIN ASPART SUPPLEMENTAL SCALE SQ SCH ×2 (17:22→20:50)
[2017-04-29] MEDS: SODIUM CHLORIDE 0.9% FLUSH 10 ML FLUSH IV FLUSH SCH (20:33)
[2017-04-29] MEDS: DIPYRIDAMOLE/ASPIRIN 200 MG/25 MG CAP PO SCH (20:33)
[2017-04-29] MEDS: HEPARIN SODIUM - SQ 10,000 UNITS/ML VIAL SQ SCH (20:33)
[2017-04-29] MEDS: DOCUSATE SODIUM 50 MG/SENNA 8.6 MG TAB PO SCH (20:33)
[2017-04-29] MEDS: ATORVASTATIN 40 MG TAB PO SCH (20:33)
--- NOTE | 2017-04-29 20:57 | PD.VS.CON ---
History of Present Illness Chief Complaint: aphasia Consult Requested by: medical service History of Present Illness 81 yo male with episode of expressive aphasia witnessed by son earlier today. Got better by time presented to ED and neurologically normal now. Reports that he has had similar but shorter lasting episode several months ago. No motor dysfunction and no amaurosis. 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 [employer] Family History [place] Home Medications Reported Medications Omeprazole (Omeprazole) 20 Mg Tab, 20 MG PO DAILY, #30 TAB 0 Refills 03/11/17 Terazosin (Terazosin) 5 Mg Cap, 5 MG PO HS, #30 CAP 0 Refills 03/11/17 Atorvastatin (Lipitor) 40 Mg Tab, 40 MG PO HS for Cholesterol Management, #30 TAB 0 Refills 03/11/17 Amlodipine (Amlodipine) 5 Mg Tab, 5 MG PO DAILY for Blood Pressure Management, # 30 TAB 0 Refills 03/11/17 Discontinued Reported Medications Clopidogrel (Plavix) 75 Mg Tab, 75 MG PO DAILY for Blood Clot Prevention, #30 TAB 0 Refills 03/11/17 Coded Allergies: No Known Allergies (Unverified Adverse Reaction, Unknown, 04/29/17) Review of Systems Constitutional: DENIES: Fever Neurologic: COMPLAINS OF: Speech Problems Physical Exam Vitals/I&O Date Time Temp Pulse Resp B/P (MAP) Pulse Ox O2 Delivery O2 Flow Rate FiO2 04/29/17 16:00 98.3 59 18 191/80 (117) 98 04/29/17 14:14 73 18 193/84 (120) 98 Nasal Cannula 2.00 04/29/17 12:12 69 18 166/73 (104) 98 Nasal Cannula 2.00 04/29/17 11:43 68 18 194/77 (116) 97 Nasal Cannula 2.00 04/29/17 10:30 97 Room Air 04/29/17 10:30 97 Room Air 04/29/17 10:22 98 Nasal Cannula 2.00 04/29/17 10:22 98 2.00 04/29/17 10:17 73 18 192/78 (116) 98 Room Air 04/29/17 10:15 87 18 97 Room Air 04/29/17 09:56 98.0 65 14 157/72 (100) 97 04/29/17 04/29/17 04/29/17 07:00 15:00 23:00 Intake Total 200 ml Balance 200 ml Neuro: alert oriented and MARTINS 5/5 HEENT: NC/AT Neck: trachea midline Heart: reg rate Lungs: nonlabored Abdomen: NT Vascular: palpable UE pulses Extremities: MARTINS 5/5 strength Laboratory Tests Test 04/29/17 10:20 White Blood Count 7.7 Red Blood Count 3.42 Hemoglobin 12.2 Bedside Hemoglobin 11.9 Hematocrit 35.2 Bedside Hematocrit 35.0 Mean Corpuscular Volume 102.9 Mean Corpuscular Hemoglobin 35.6 Mean Corpuscular Hemoglobin Concent 34.6 Red Cell Distribution Width 13.3 Platelet Count 214 Mean Platelet Volume 9.3 Neutrophils (%) (Auto) 56.7 Lymphocytes (%) (Auto) 23.1 Monocytes (%) (Auto) 7.7 Eosinophils (%) (Auto) 11.8 Basophils (%) (Auto) 0.7 Neutrophils # (Auto) 4.4 Lymphocytes # (Auto) 1.8 Monocytes # (Auto) 0.6 Eosinophils # (Auto) 0.9 Basophils # (Auto) 0.1 CBC Comment DIFF FINAL Differential Comment Prothrombin Time 10.0 Prothromb Time International Ratio 1.0 Activated Partial Thromboplast Time 26.1 Fibrinogen 346 Bedside Sodium 134 Bedside Potassium 5.0 Bedside Chloride 99 Bedside Blood Urea Nitrogen 19 Bedside Creatinine 1.5 Bedside Glucose 98 Hemoglobin A1c 4.8 Total Creatine Kinase 93 Troponin I 0.02 Last 48 hours Impressions Neck CTA 04/29/17 1027 Signed Impressions: Service Date/Time: Saturday, April 29, 2017 10:26 - CONCLUSION: 1. Calcified plaque in the right carotid bulb extending to the origin of the internal and external carotid arteries. There is a prominent ulcerated plaque in the right internal carotid origin. Resultant up to 50%% stenosis of the right internal carotid origin. 2. Calcified plaque in the left carotid bulb extending to the origin of the internal and external carotid arteries. Resultant up to 60%% stenosis of the left internal carotid origin likely exaggerated by some tortuosity. 3. Dominant right vertebral artery. Ej Veliz MD Head CTA 04/29/17 1018 Signed Impressions: Service Date/Time: Saturday, April 29, 2017 10:26 - CONCLUSION: 1. Diffusely calcified intracranial carotid arteries with likely moderate stenosis on the right. 2. Redemonstration of hypoplastic left A1 segment. 3. No large vessel occlusion or significant intracranial flow-limiting stenosis. Ej Veliz MD Head Magnetic Resonance Angiography 04/29/17 0000 Signed Impressions: Service Date/Time: Saturday, April 29, 2017 14:48 - CONCLUSION: 1. 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 2. Otherwise, intracranial vessels are all patent no aneurysmal disease. No change from prior. Ricky Becerra MD Head CT 04/29/17 0000 Signed Impressions: Service Date/Time: Saturday, April 29, 2017 10:26 - CONCLUSION: Old right parietal stroke. No acute intracranial findings. Musa Zhang MD Carotid Artery Ultrasound 04/29/17 0000 Signed Impressions: Service Date/Time: Saturday, April 29, 2017 15:11 - CONCLUSION: 1. Extensive calcification throughout both carotid systems. 2. Doppler velocities would suggest high-grade stenosis in the external carotid arteries bilaterally. There does not appear to be a hemodynamically significant stenosis in the internal carotid despite the dense calcification, however. 3. Waveforms of the cervical vessels show very little diastolic flow, a pattern more characteristic of the external circulation and suggestive of a high resistance vascular flow. This has progressed from the 2014 exam. Findings in all 4 cervical vessels may indicate increased intracranial pressure. CTA of the cervical vessels could be performed for further characterization if clinically warranted Ricky Becerra MD Brain MRI 04/29/17 0000 Signed Impressions: Service Date/Time: Saturday, April 29, 2017 14:48 - CONCLUSION: 1. Stable area of infarction involving the right posterior temporal, occipital and parietal lobes. 2. No acute hemorrhage, mass infarction. Pastor Muller MD Assessment and Plan Plan Moderate L ICA stenosis and mild R ICA stenosis. Unclear if episode this morning was related and of concern there appears to be chronic intracranial vascular disease. I am not sure if prophylactic L CEA warranted kimberly in light of negative MRI of brain for acute pathology. Will discuss with medicine, neurology. Clearly needs ASA, statin. Will follow. Channing Murphy MD FACS RPVI repair weaver [facility] [phone] Channing Murphy MD Apr 29, 2017 20:57
[2017-04-30] VITALS (9 sets, daily range): BP systolic 134–182; BP diastolic 61–91; PULSE 58–107; RESP 17–18; TEMP 96.9–98.4; O2SAT 95–98
[2017-04-30 01:16] LABS: CALCIUM 8.6 MG/DL (8.5-10.1); CREATININE 1.38 MG/DL (0.60-1.30); MAGNESIUM 1.9 MG/DL (1.5-2.5); PHOSPHORUS 2.9 MG/DL (2.5-4.9)
[2017-04-30] MEDS: ACETAMINOPHEN 325 MG TAB PO PRN ×3 (01:26→13:30)
[2017-04-30] MEDS: SODIUM CHLOR 0.9% 1000 ML INJ 1,000 ML IV SCH ×2 (02:58→16:48)
[2017-04-30] MEDS: FOLIC ACID 1 MG TAB PO SCH (07:42)
[2017-04-30] MEDS: MULTIVITAMINS/MINERALS THERAPEUTIC TAB PO SCH (07:42)
[2017-04-30] MEDS: THIAMINE HCL 100 MG TAB PO SCH (07:42)
[2017-04-30] MEDS: PANTOPRAZOLE SOD 20 MG DELAYED RELEASE TAB PO SCH (07:42)
[2017-04-30] MEDS: DIPYRIDAMOLE/ASPIRIN 200 MG/25 MG CAP PO SCH ×2 (07:42→22:11)
[2017-04-30] MEDS: HEPARIN SODIUM - SQ 10,000 UNITS/ML VIAL SQ SCH ×2 (07:43→22:11)
[2017-04-30] MEDS: DOCUSATE SODIUM 50 MG/SENNA 8.6 MG TAB PO SCH ×2 (07:43→22:11)
[2017-04-30] MEDS: INSULIN ASPART SUPPLEMENTAL SCALE SQ SCH ×4 (07:49→21:00)
[2017-04-30] MEDS: SODIUM CHLORIDE 0.9% FLUSH 10 ML FLUSH IV FLUSH SCH ×2 (07:49→22:12)
--- NOTE | 2017-04-30 08:03 | HHI.PR ---
Review/Management Diagnosis/Plan: (1) TIA (transient ischemic attack) ICD Codes: G45.9 - TIA (transient ischemic attack) Status: Acute Plan: could be 2/2 left ica stenosis with expressive aphasia type symptoms also, with significant rt ica intracranial dz r/o post-stroke sz recs tolerating aggrenox defer to surgery re: left cea. had transient expressive aphasia which would localize to left frontal hemisphere, broca's if they decline surgery, then d/c home on aggrenox eeg-pending lipid panel-pending follow exam d/w pt (2) Carotid artery stenosis ICD Codes: I65.29 - Carotid artery stenosis Status: Acute (3) Accelerated hypertension ICD Codes: I10 - Accelerated hypertension Status: Acute (4) Chronic ischemic right MCA stroke ICD Codes: Z86.73 - Chronic ischemic right MCA stroke Status: Chronic Subjective Subjective Comments No acute events reported pt remembers episode- "i was unable to get my words out" No headache No chest pain No dyspnea Active Medications Current Medications Medications (Trade) Dose Ordered Sig/Lindsey Route Start Time Stop Time Status Last Admin (NS Flush) 2 ml BID IV FLUSH 04/29/17 21:00 04/30/17 07:49 (NS Flush) 2 ml UNSCH PRN IV FLUSH 04/29/17 12:30 Sodium Chloride 1,000 ml @ 70 mls/hr [id number] IV 04/29/17 13:00 (Vasotec Inj) 1.25 mg Q4H PRN IV PUSH 04/29/17 12:30 (NovoLOG SUPPLEMENTAL SCALE) 1 ACHS SQ 04/29/17 17:00 (D50w (Vial) Inj) 50 ml UNSCH PRN IV PUSH 04/29/17 12:30 (Glucagon Inj) 1 mg UNSCH PRN OTHER 04/29/17 12:30 (Tylenol) 650 mg Q4H PRN PO 04/29/17 12:45 (Zofran Inj) 4 mg Q6H PRN IVP 04/29/17 12:45 (Tylenol) 650 mg Q6H PRN PO 04/29/17 12:45 04/30/17 01:26 (Narcan Inj) 0.4 mg UNSCH PRN IV PUSH 04/29/17 12:45 (Netta-Colace) 1 tab BID PO 04/29/17 21:00 04/30/17 07:43 (Senokot) 17.2 mg Q12H PRN PO 04/29/17 12:45 (Dulcolax Supp) 10 mg DAILY PRN RECTAL 04/29/17 12:45 (Lactulose Liq) 30 ml DAILY PRN PO 04/29/17 12:45 (Lipitor) 40 mg HS PO 04/29/17 21:00 04/29/17 20:33 (Protonix) 20 mg DAILY PO 04/30/17 09:00 04/30/17 07:42 (Folate) 1 mg DAILY PO 04/30/17 09:00 05/05/17 08:59 04/30/17 07:42 (Vitamin B1) 100 mg DAILY PO 04/30/17 09:00 04/30/17 07:42 (Theragran M Tab) 1 tab DAILY PO 04/30/17 09:00 05/05/17 08:59 04/30/17 07:42 (Romazicon Inj) 0.2 mg Q1M PRN IV PUSH 04/29/17 13:45 (Ativan) 1 mg Q4H PRN PO 04/29/17 13:45 (Ativan Inj) 1 mg Q4H PRN IV PUSH 04/29/17 13:45 (Ativan) 2 mg Q2H PRN PO 04/29/17 13:45 (Ativan Inj) 2 mg Q2H PRN IV PUSH 04/29/17 13:45 (Ativan Inj) 2 mg Q1H PRN IV PUSH 04/29/17 13:45 (Ativan Inj) 2 mg Q15M PRN IV PUSH 04/29/17 13:45 (Haldol Inj) 2 mg Q15M PRN IM 04/29/17 13:45 (Aggrenox 200-25 Mg) 1 cap Q12HR PO 04/29/17 21:00 04/30/17 07:42 (Heparin Inj) 5,000 units BID SQ 04/29/17 21:00 04/30/17 07:43 Allergies Allergies Coded Allergies No Known Allergies (Unverified Adverse Reaction, Unknown, 04/29/17) Review of Systems All other ROS: ROS reviewed as documented in chart Exam I&O / VS Vital Signs Date Time Temp Pulse Resp B/P (MAP) Pulse Ox O2 Delivery O2 Flow Rate FiO2 04/30/17 04:00 98.4 66 17 182/79 (113) 97 04/30/17 00:00 98.2 68 18 145/67 (93) 96 04/29/17 22:45 76 04/29/17 20:00 98.1 59 18 170/75 (106) 97 04/29/17 16:00 98.3 59 18 191/80 (117) 98 04/29/17 14:14 73 18 193/84 (120) 98 Nasal Cannula 2.00 04/29/17 12:12 69 18 166/73 (104) 98 Nasal Cannula 2.00 04/29/17 11:43 68 18 194/77 (116) 97 Nasal Cannula 2.00 04/29/17 10:30 97 Room Air 04/29/17 10:30 97 Room Air 04/29/17 10:22 98 Nasal Cannula 2.00 04/29/17 10:22 98 2.00 04/29/17 10:17 73 18 192/78 (116) 98 Room Air 04/29/17 10:15 87 18 97 Room Air 04/29/17 09:56 98.0 65 14 157/72 (100) 97 General: Alert and Oriented, No acute distress Eye: PERRL Respiratory: Lungs CTA, Non-labored respirations Cardiology: Normal rate Musculoskeletal: ROM Neurologic: Alert, Oriented, Normal sensory, Gag reflex normal, Normal DTR's Psychiatric: Cooperative, Appropriate mood & affect, Normal judgement Exam Comments alert, articulate, ox 3, sitting up, follows. eomi, face sym, no drift in any ext, mild increased tone ue L>rt, no tremors, gait not assessed 2/2 fall risk Objective Micro and Labs Laboratory Tests Test 04/29/17 10:20 04/30/17 00:30 White Blood Count 7.7 Red Blood Count 3.42 Hemoglobin 12.2 Bedside Hemoglobin 11.9 Hematocrit 35.2 Bedside Hematocrit 35.0 Mean Corpuscular Volume 102.9 Mean Corpuscular Hemoglobin 35.6 Mean Corpuscular Hemoglobin Concent 34.6 Red Cell Distribution Width 13.3 Platelet Count 214 Mean Platelet Volume 9.3 Neutrophils (%) (Auto) 56.7 Lymphocytes (%) (Auto) 23.1 Monocytes (%) (Auto) 7.7 Eosinophils (%) (Auto) 11.8 Basophils (%) (Auto) 0.7 Neutrophils # (Auto) 4.4 Lymphocytes # (Auto) 1.8 Monocytes # (Auto) 0.6 Eosinophils # (Auto) 0.9 Basophils # (Auto) 0.1 CBC Comment DIFF FINAL Differential Comment Prothrombin Time 10.0 Prothromb Time International Ratio 1.0 Activated Partial Thromboplast Time 26.1 Fibrinogen 346 Bedside Sodium 134 Bedside Potassium 5.0 Bedside Chloride 99 Bedside Blood Urea Nitrogen 19 Bedside Creatinine 1.5 Bedside Glucose 98 Hemoglobin A1c 4.8 Total Creatine Kinase 93 Troponin I 0.02 Blood Urea Nitrogen 16 Creatinine 1.38 Random Glucose 92 Calcium Level 8.6 Phosphorus Level 2.9 Magnesium Level 1.9 Sodium Level 137 Potassium Level 4.5 Chloride Level 103 Carbon Dioxide Level 28.0 Anion Gap 6 Estimat Glomerular Filtration Rate 50 Simon Carbone MD Apr 30, 2017 08:03
[2017-04-30] MEDS ORDERED: CLOPIDOGREL 75 MG TAB PO SCH (09:00)
[2017-04-30] MEDS ORDERED: ASPIRIN 81 MG CHEW TAB PO SCH (09:00)
[2017-04-30 10:15] LABS: BICARBONATE 23.8 MEQ/L (21.0-32.0); CALCIUM 8.8 MG/DL (8.5-10.1); CREATININE 1.37 MG/DL (0.60-1.30)
[2017-04-30 10:20] LABS: CHOLESTEROL/ HDL RATIO 2.29 RATIO; HDL CHOLESTEROL 47.1 MG/DL (40.0-60.0)
--- NOTE | 2017-04-30 12:29 | HHI.PR ---
Subjective Remarks Follow-up TIA. No complaints denies headache, dizziness, confusion, nausea and weakness. States he is back to baseline and confirmed by family. Objective Vitals Vital Signs Date Time Temp Pulse Resp B/P (MAP) Pulse Ox O2 Delivery O2 Flow Rate FiO2 04/30/17 11:23 16 04/30/17 08:00 98.1 68 18 134/91 (105) 95 04/30/17 08:00 74 04/30/17 04:00 98.4 66 17 182/79 (113) 97 04/30/17 00:00 98.2 68 18 145/67 (93) 96 04/29/17 22:45 76 04/29/17 20:00 98.1 59 18 170/75 (106) 97 04/29/17 16:00 98.3 59 18 191/80 (117) 98 04/29/17 14:14 73 18 193/84 (120) 98 Nasal Cannula 2.00 I/O 04/29/17 04/29/17 04/29/17 04/30/17 04/30/17 04/30/17 07:00 15:00 23:00 07:00 15:00 23:00 Intake Total 200 ml Balance 200 ml Intake IV Total 200 ml # Voids 1 0 # Bowel Movements 0 Result Diagram: 04/29/17 1020 04/30/17 0858 Imaging Last Impressions Neck CTA 04/29/17 1027 Signed Impressions: Service Date/Time: Saturday, April 29, 2017 10:26 - CONCLUSION: 1. Calcified plaque in the right carotid bulb extending to the origin of the internal and external carotid arteries. There is a prominent ulcerated plaque in the right internal carotid origin. Resultant up to 50%% stenosis of the right internal carotid origin. 2. Calcified plaque in the left carotid bulb extending to the origin of the internal and external carotid arteries. Resultant up to 60%% stenosis of the left internal carotid origin likely exaggerated by some tortuosity. 3. Dominant right vertebral artery. Ej Veliz MD Head CTA 04/29/17 1018 Signed Impressions: Service Date/Time: Saturday, April 29, 2017 10:26 - CONCLUSION: 1. Diffusely calcified intracranial carotid arteries with likely moderate stenosis on the right. 2. Redemonstration of hypoplastic left A1 segment. 3. No large vessel occlusion or significant intracranial flow-limiting stenosis. Ej Veliz MD Head Magnetic Resonance Angiography 04/29/17 Signed Impressions: Service Date/Time: Saturday, April 29, 2017 14:48 - CONCLUSION: 1. 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 2. Otherwise, intracranial vessels are all patent no aneurysmal disease. No change from prior. Ricky Becerra MD Head CT 04/29/17 Signed Impressions: Service Date/Time: Saturday, April 29, 2017 10:26 - CONCLUSION: Old right parietal stroke. No acute intracranial findings. Musa Zhang MD Carotid Artery Ultrasound 04/29/17 Signed Impressions: Service Date/Time: Saturday, April 29, 2017 15:11 - CONCLUSION: 1. Extensive calcification throughout both carotid systems. 2. Doppler velocities would suggest high-grade stenosis in the external carotid arteries bilaterally. There does not appear to be a hemodynamically significant stenosis in the internal carotid despite the dense calcification, however. 3. Waveforms of the cervical vessels show very little diastolic flow, a pattern more characteristic of the external circulation and suggestive of a high resistance vascular flow. This has progressed from the 2014 exam. Findings in all 4 cervical vessels may indicate increased intracranial pressure. CTA of the cervical vessels could be performed for further characterization if clinically warranted Ricky Becerra MD Brain MRI 04/29/17 Signed Impressions: Service Date/Time: Saturday, April 29, 2017 14:48 - CONCLUSION: 1. Stable area of infarction involving the right posterior temporal, occipital and parietal lobes. 2. No acute hemorrhage, mass infarction. Pastor Muller MD Objective Remarks GENERAL: This is a well-nourished, well-developed patient, in no apparent distress. SKIN: No rashes, ecchymoses or lesions. Cool and dry. CARDIOVASCULAR: Regular rate and rhythm without murmurs, gallops, or rubs. RESPIRATORY: Clear to auscultation. Breath sounds equal bilaterally. No wheezes , rales, or rhonchi. GASTROINTESTINAL: Abdomen soft, non-tender, nondistended. No guarding. MUSCULOSKELETAL: Extremities without clubbing, cyanosis, or edema. No joint tenderness, effusion, or edema noted. No calf tenderness. Negative Homans sign bilaterally. NEUROLOGICAL: Awake and alert. Cranial nerves II through XII intact. Motor and sensory grossly within normal limits. Five out of 5 muscle strength in all muscle groups. Normal speech. Procedures none A/P Problem List: (1) TIA (transient ischemic attack) ICD Code: G45.9 - TIA (transient ischemic attack) Status: Acute (2) Accelerated hypertension ICD Code: I10 - Accelerated hypertension Status: Acute Assessment and Plan This is a 81-year-old male with a history of TIA, hyperlipidemia and hypertension. He presented with strokelike symptoms resolved over a brief period of time while in the ED. TIA vs CVA with hx TIA/CVA. Neuro symptoms are resolved. Discussed with neurology, aspirin [address] . Stable f/u ECHO and EEG. Permissive hypertension. Consulted vascular surgery regarding abnormal bilateral carotid surgery with ulcerated plaque of the right carotid. Dr. Murphy not certain if prophylactic left CEA warranted with negative brain MRI. Normal A1c and lipid profile unremarkable LDL 48. Risk factor modifications. PT, OT and ST eval. Mild hyponatremia sodium 134. Monitor Chronic kidney disease stage III. Nonoliguric. Continue IV hydration specially after receiving contrast. Avoid nephrotoxins. Repeat BMP shows improvement. Follow-up urinalysis. Elevated MCV with history of alcohol abuse. Counseled. WA protocol. Chronic medical conditions of hyperlipidemia, hypertension and prostate cancer status post radiation therapy. Continue outpatient medications as appropriate DVT prophylaxis with SCD. Pharmacological prophylaxis if okay with vascular surgery Discharge Planning Possible discharge if echocardiogram and EEG unremarkable Tucker Merino MD Apr 30, 2017 12:29
[2017-04-30] MEDS ORDERED: THIA100 PO (14:37)
[2017-04-30] MEDS ORDERED: AGGR20025 PO (14:37)
--- NOTE | 2017-04-30 14:37 | HHI.DCPOC ---
Discharge Care Plan Diagnosis: (1) TIA (transient ischemic attack) Your Health Problems Are: Difficulty with ADL Exercise Tolerance Goals to Promote Your Health * To prevent worsening of your condition and complications * To maintain your health at the optimal level Directions to Meet Your Goals Take your medications as prescribed Follow your dietary instruction Follow activity as directed Keep your appointments as scheduled Take your immunizations and boosters as scheduled If your symptoms worsen call your PCP, if no PCP go to Urgent Care Center or Emergency Room Smoking is Dangerous to Your Health. Avoid second hand smoke Call the 24-hour hour crisis hotline for domestic abuse at Tucker Merino MD Apr 30, 2017 14:37
--- NOTE | 2017-04-30 17:19 | ECHRPT ---
Indication: ATRIAL FIB CONCLUSIONS The left ventricular systolic function is hyperdynamic with an estimated ejection fraction in the ra nge of 65- 70%. Normal left ventricular size. Wall thickness is normal. No regional wall motion abnormalities are present. Aortic valve sclerosis is present. BP: 135 / 66 HR: 124 Rhythm: Sinus MEASUREMENTS (Male / Female) Normal Values Technical Quality:Fair 2D ECHO LV Diastolic Diameter PLAX 4.9 cm 4.2 - 5.9 / 3.9 - 5.3 cm LV Systolic Diameter PLAX 3.3 cm IVS Diastolic Thickness 1.1 cm 0.6 - 1.0 / 0.6 - 0.9 cm LVPW Diastolic Thickness 1.1 cm 0.6 - 1.0 / 0.6 - 0.9 cm LV Relative Wall Thickness 0.4 RV Internal Dim ED PLAX 2.4 cm LVOT Diameter 2.0 cm LA Systolic Diameter LX 4.0 cm 3.0 - 4.0 / 2.7 - 3.8 cm M-MODE Aortic Root Diameter MM 2.5 cm LA Systolic Diameter MM 3.9 cm LA Ao Ratio MM 1.6 AV Cusp Separation MM 1.5 cm DOPPLER AV Peak Velocity 191.0 cm/s AV Peak Gradient 14.6 mmHg LVOT Peak Velocity 133.0 cm/s LVOT Peak Gradient 7.1 mmHg AV Area Cont Eq pk 2.2 cm MV Area PHT 2.7 cm Mitral E Point Velocity 91.5 cm/s Mitral A Point Velocity 115.0 cm/s Mitral E to A Ratio 0.8 LV E' Lateral Velocity 3.0 cm/s Mitral E to LV E' Lateral Ratio 30.3 LV E' Septal Velocity 4.1 cm/s Mitral E to LV E' Septal Ratio 22.4 PV Peak Velocity 113.0 cm/s PV Peak Gradient 5.1 mmHg FINDINGS LEFT VENTRICLE The left ventricular systolic function is hyperdynamic with an estimated ejection fraction in the ra nge of 65- 70%. Normal left ventricular size. Wall thickness is normal. No regional wall motion abnormalities are present. RIGHT VENTRICLE Normal right ventricular size and systolic function. LEFT ATRIUM The left atrial size is normal. RIGHT ATRIUM The right atrial size is normal. ATRIAL SEPTUM Normal atrial septal thickness without atrial level shunting by limited color doppler interrogation. AORTA The aortic root and proximal ascending aorta are normal in size on limited imaging. MITRAL VALVE Structurally normal mitral valve. No mitral valve stenosis or regurgitation. AORTIC VALVE Trileaflet aortic valve. Aortic valve sclerosis is present. TRICUSPID VALVE Structurally normal tricuspid valve. No tricuspid valve stenosis or regurgitation. PULMONARY VALVE The pulmonary valve is not well visualized. VESSELS The inferior vena cava is normal in size. PERICARDIUM No pericardial effusion. Antoinette Monk MD, FACC (Electronically Signed) Final Date:30 April 2017 17:18
[2017-04-30] MEDS: ATORVASTATIN 40 MG TAB PO SCH (22:11)
--- NOTE | 2017-05-01 00:06 | MG ---
cc: ROSANA BENZ MD Sex: M DATE OF 1935 REFERRING PHYSICIAN: Dr. Merino. MEDICAL HISTORY Bilateral cataract surgery. [id number], TIA, CABG, anticoagulation therapy , prostate cancer, hypercholesteremia, hypertension, GERD, lower back surgery, arthritis, alcohol use. The patient fell and he was found next to his bed with arms above his head unable to move. MEDICATIONS: 1. Protonix. 2. Folic acid. 3. Thiamine. 4. Theragran. 5. Lipitor. 6. Tylenol. DESCRIPTION The background activity is 8-9 Hz alpha located posteriorly and attenuates to eye opening. There is excessive movement artifact and eye blink artifact during the recording. Hyperventilation was omitted. Photic stimulation did not elicit a driving response. There were no electrographic seizures or epileptiform discharges noted during the recording. INTERPRETATION: This is an awake, drowsy and EEG. There were no electrographic seizures or epileptiform discharge during the recording. Clinical correlation is recommended. MD JOSE Pineda/DAVON /8:13 PM /11:39 PM [id number]
[2017-05-01] MEDS: ACETAMINOPHEN 325 MG TAB PO PRN ×2 (00:36→10:16)
[2017-05-01 01:02] VITALS: BP 178/76; PULSE 76; RESP 18; TEMP 98; O2SAT 98
[2017-05-01 05:00] VITALS: BP 167/72; PULSE 68; RESP 17; TEMP 98.2; O2SAT 96
[2017-05-01] MEDS: INSULIN ASPART SUPPLEMENTAL SCALE SQ SCH (07:28)
[2017-05-01] MEDS: SODIUM CHLOR 0.9% 1000 ML INJ 1,000 ML IV SCH (07:29)
[2017-05-01] MEDS: PANTOPRAZOLE SOD 20 MG DELAYED RELEASE TAB PO SCH (07:48)
[2017-05-01] MEDS: FOLIC ACID 1 MG TAB PO SCH (07:48)
[2017-05-01] MEDS: HEPARIN SODIUM - SQ 10,000 UNITS/ML VIAL SQ SCH (07:48)
[2017-05-01] MEDS: MULTIVITAMINS/MINERALS THERAPEUTIC TAB PO SCH (07:48)
[2017-05-01] MEDS: THIAMINE HCL 100 MG TAB PO SCH (07:48)
[2017-05-01] MEDS: DIPYRIDAMOLE/ASPIRIN 200 MG/25 MG CAP PO SCH (07:48)
[2017-05-01] MEDS: SODIUM CHLORIDE 0.9% FLUSH 10 ML FLUSH IV FLUSH SCH (07:49)
[2017-05-01] MEDS: DOCUSATE SODIUM 50 MG/SENNA 8.6 MG TAB PO SCH (07:49)
[2017-05-01 07:55] VITALS: PULSE 85
--- NOTE | 2017-05-01 07:56 | HHI.PR ---
Review/Management Diagnosis/Plan: (1) TIA (transient ischemic attack) ICD Codes: G45.9 - TIA (transient ischemic attack) Status: Acute Plan: could be 2/2 left ica stenosis with expressive aphasia type symptoms also, with significant rt ica intracranial dz r/o post-stroke sz recs neuro exam non-focal tolerating aggrenox eeg-negative lipid panel-in good range, ldl <50 defer to surgery re: left cea. had transient expressive aphasia which would localize to left frontal hemisphere, broca's if they decline surgery, then d/c home on aggrenox d/c planning d/w pt (2) Carotid artery stenosis ICD Codes: I65.29 - Carotid artery stenosis Status: Acute (3) Accelerated hypertension ICD Codes: I10 - Accelerated hypertension Status: Acute (4) Chronic ischemic right MCA stroke ICD Codes: Z86.73 - Chronic ischemic right MCA stroke Status: Chronic Subjective Subjective Comments No acute events reported "i feel great, can i go home?" mild headache last night, resolved now No chest pain No dyspnea Active Medications Current Medications Medications (Trade) Dose Ordered Sig/Lindsey Route Start Time Stop Time Status Last Admin (NS Flush) 2 ml BID IV FLUSH 04/29/17 21:00 05/01/17 07:49 (NS Flush) 2 ml UNSCH PRN IV FLUSH 04/29/17 12:30 Sodium Chloride 1,000 ml @ 70 mls/hr [id number] IV 04/29/17 13:00 (Vasotec Inj) 1.25 mg Q4H PRN IV PUSH 04/29/17 12:30 (Tylenol) 650 mg Q4H PRN PO 04/29/17 12:45 (Zofran Inj) 4 mg Q6H PRN IVP 04/29/17 12:45 (Tylenol) 650 mg Q6H PRN PO 04/29/17 12:45 05/01/17 00:36 (Narcan Inj) 0.4 mg UNSCH PRN IV PUSH 04/29/17 12:45 (Netta-Colace) 1 tab BID PO 04/29/17 21:00 04/30/17 22:11 (Senokot) 17.2 mg Q12H PRN PO 04/29/17 12:45 (Dulcolax Supp) 10 mg DAILY PRN RECTAL 04/29/17 12:45 (Lactulose Liq) 30 ml DAILY PRN PO 04/29/17 12:45 (Lipitor) 40 mg HS PO 04/29/17 21:00 04/30/17 22:11 (Protonix) 20 mg DAILY PO 04/30/17 09:00 05/01/17 07:48 (Folate) 1 mg DAILY PO 04/30/17 09:00 05/05/17 08:59 05/01/17 07:48 (Vitamin B1) 100 mg DAILY PO 04/30/17 09:00 05/01/17 07:48 (Theragran M Tab) 1 tab DAILY PO 04/30/17 09:00 05/05/17 08:59 05/01/17 07:48 (Romazicon Inj) 0.2 mg Q1M PRN IV PUSH 04/29/17 13:45 (Ativan) 1 mg Q4H PRN PO 04/29/17 13:45 (Ativan Inj) 1 mg Q4H PRN IV PUSH 04/29/17 13:45 (Ativan) 2 mg Q2H PRN PO 04/29/17 13:45 (Ativan Inj) 2 mg Q2H PRN IV PUSH 04/29/17 13:45 (Ativan Inj) 2 mg Q1H PRN IV PUSH 04/29/17 13:45 (Ativan Inj) 2 mg Q15M PRN IV PUSH 04/29/17 13:45 (Haldol Inj) 2 mg Q15M PRN IM 04/29/17 13:45 (Aggrenox 200-25 Mg) 1 cap Q12HR PO 04/29/17 21:00 05/01/17 07:48 (Heparin Inj) 5,000 units BID SQ 04/29/17 21:00 05/01/17 07:48 Allergies Allergies Coded Allergies No Known Allergies (Unverified Adverse Reaction, Unknown, 04/29/17) Review of Systems All other ROS: ROS reviewed as documented in chart Exam I&O / VS Vital Signs Date Time Temp Pulse Resp B/P (MAP) Pulse Ox O2 Delivery O2 Flow Rate FiO2 05/01/17 05:00 98.2 68 17 167/72 (103) 96 05/01/17 01:02 98.0 76 18 178/76 (110) 98 04/30/17 22:15 102 04/30/17 20:30 96.9 58 17 158/70 (99) 98 04/30/17 17:13 98 21 04/30/17 16:00 84 04/30/17 16:00 98.0 84 18 139/61 (87) 98 04/30/17 12:04 107 04/30/17 12:00 87 18 141/80 (100) 97 04/30/17 11:23 16 04/30/17 08:00 98.1 68 18 134/91 (105) 95 04/30/17 08:00 74 General: Alert and Oriented, No acute distress Eye: PERRL Respiratory: Lungs CTA, Non-labored respirations Cardiology: Normal rate Musculoskeletal: ROM Neurologic: Alert, Oriented, Normal sensory, Gag reflex normal, Normal DTR's Psychiatric: Cooperative, Appropriate mood & affect, Normal judgement Exam Comments alert, ox 3, sitting up in chair, looks well, follows. eomi, face sym, no drift in any ext, mild increased tone ue L>rt, no tremors, gait not assessed 2/2 fall risk Objective Micro and Labs Laboratory Tests Test 04/30/17 08:58 Blood Urea Nitrogen 15 Creatinine 1.37 Random Glucose 84 Calcium Level 8.8 Sodium Level 134 Potassium Level 4.1 Chloride Level 101 Carbon Dioxide Level 23.8 Anion Gap 9 Estimat Glomerular Filtration Rate 50 Triglycerides Level 67 Cholesterol Level 108 LDL Cholesterol 48 HDL Cholesterol 47.1 Cholesterol/HDL Ratio 2.29 Simon Carbone MD May 01, 2017 07:56
[2017-05-01 08:36] VITALS: BP 181/79; PULSE 82; RESP 20; TEMP 98.4; O2SAT 96
[2017-05-01] MEDS ORDERED: amLODIPine BESYLATE 5 MG TAB PO SCH (09:00)
--- NOTE | 2017-05-01 10:18 | PD.VS.PN ---
Subjective Subjective/Hospital Course Pt sitting in chair alert in nad Pt w/o any new or recent neurological deficits Objective Vitals/I&O Date Time Temp Pulse Resp B/P (MAP) Pulse Ox O2 Delivery O2 Flow Rate FiO2 05/01/17 08:36 98.4 82 20 181/79 (113) 96 05/01/17 07:55 85 05/01/17 05:00 98.2 68 17 167/72 (103) 96 05/01/17 01:02 98.0 76 18 178/76 (110) 98 04/30/17 22:15 102 04/30/17 20:30 96.9 58 17 158/70 (99) 98 04/30/17 17:13 98 21 04/30/17 16:00 84 04/30/17 16:00 98.0 84 18 139/61 (87) 98 04/30/17 12:04 107 04/30/17 12:00 87 18 141/80 (100) 97 04/30/17 11:23 16 05/01/17 05/01/17 05/01/17 07:00 15:00 23:00 Intake Total 240 ml Balance 240 ml Physical Exam GENERAL: A&OX3,NAD,GCS15 SKIN: Warm and dry. CN 2-12 intact Speech clear UE 5/5 LE 5/5 R/L radial pulses palpable Imaging Last 48 hours Impressions Neck CTA 04/29/17 1027 Signed Impressions: Service Date/Time: Saturday, April 29, 2017 10:26 - CONCLUSION: 1. Calcified plaque in the right carotid bulb extending to the origin of the internal and external carotid arteries. There is a prominent ulcerated plaque in the right internal carotid origin. Resultant up to 50%% stenosis of the right internal carotid origin. 2. Calcified plaque in the left carotid bulb extending to the origin of the internal and external carotid arteries. Resultant up to 60%% stenosis of the left internal carotid origin likely exaggerated by some tortuosity. 3. Dominant right vertebral artery. Ej Veliz MD Head CTA 04/29/17 1018 Signed Impressions: Service Date/Time: Saturday, April 29, 2017 10:26 - CONCLUSION: 1. Diffusely calcified intracranial carotid arteries with likely moderate stenosis on the right. 2. Redemonstration of hypoplastic left A1 segment. 3. No large vessel occlusion or significant intracranial flow-limiting stenosis. Ej Veliz MD Assessment and Plan Plan Pt w/ Moderate L ICA stenosis and mild R ICA stenosis. Unclear if episode was related and of concern there appears to be chronic intracranial vascular disease. I am not sure if prophylactic L CEA warranted kimberly in light of negative MRI of brain for acute pathology. Plan Discussed and reviewed carotid artery disease and medical management w/ pt Recommend CV risk factor modification (ASA/Statin therapy) Pt CLEAR for D/C from a vascular stand point Arranged post OP F/U with a surveillance carotid Duplex study [place] [facility] [phone] Discharge Planning Clear for D/C from a vascular stand point Arranged OP F/U Keara Grigsby May 01, 2017 10:18
[2017-05-01 10:24] VITALS: O2SAT 96
--- NOTE | 2017-05-01 11:09 | HHI.DS ---
Discharge Summary Admission Date Apr 29, 2017 at 12:31 Discharge Date: May 01, 2017 Admitting Diagnosis TIA (1) TIA (transient ischemic attack) ICD Code: G45.9 - TIA (transient ischemic attack) Diagnosis: Principal Status: Acute (2) Accelerated hypertension ICD Code: I10 - Accelerated hypertension Diagnosis: Principal Status: Acute Procedures none Brief History - From Admission This is a 81-year-old male with a history of TIA, hyperlipidemia, hypertension and prostate cancer status post radiation therapy. Patient recently had right knee surgery and was on his way to outpatient physical therapy when his son noted patient looking tired and mumbling with slurred speech. He was disoriented and had difficulty writing check. He was immediately brought to the emergency room room and over the course of time his symptoms resolved. At this time, he has no complaints. He swears compliance with medications though he is not sure what kind of antiplatelet he is on maybe Plavix. He was on aspirin before. Also given Eliquis for DVT treatment 2 years ago after undergoing left shoulder surgery. All other systems reviewed negative. Seen with family. Son provided most of the history. CBC/BMP: 04/29/17 1020 04/30/17 0858 Significant Findings Laboratory Tests Test 04/29/17 10:20 04/30/17 00:30 04/30/17 08:58 Red Blood Count 3.42 MIL/MM3 (4.50-5.90) Hemoglobin 12.2 GM/DL (13.0-17.0) Bedside Hemoglobin 11.9 G/DL (13.0-17.0) Hematocrit 35.2 % (39.0-51.0) Bedside Hematocrit 35.0 % (39.0-51.0) Mean Corpuscular Volume 102.9 FL (80.0-100.0) Mean Corpuscular Hemoglobin 35.6 PG (27.0-34.0) Eosinophils (%) (Auto) 11.8 % (0.0-4.0) Eosinophils # (Auto) 0.9 TH/MM3 (0-0.4) Bedside Sodium 134 MMOL/L (137-144) Bedside Chloride 99 MMOL/L (102-111) Bedside Creatinine 1.5 MG/DL (0.6-1.3) Creatinine 1.38 MG/DL (0.60-1.30) 1.37 MG/DL (0.60-1.30) Estimat Glomerular Filtration Rate 50 ML/MIN (>89) 50 ML/MIN (>89) Sodium Level 134 MEQ/L (136-145) Cholesterol Level 108 MG/DL (120-200) Imaging Last Impressions Neck CTA 04/29/17 1027 Signed Impressions: Service Date/Time: Saturday, April 29, 2017 10:26 - CONCLUSION: 1. Calcified plaque in the right carotid bulb extending to the origin of the internal and external carotid arteries. There is a prominent ulcerated plaque in the right internal carotid origin. Resultant up to 50%% stenosis of the right internal carotid origin. 2. Calcified plaque in the left carotid bulb extending to the origin of the internal and external carotid arteries. Resultant up to 60%% stenosis of the left internal carotid origin likely exaggerated by some tortuosity. 3. Dominant right vertebral artery. Ej Veliz MD Head CTA 04/29/17 1018 Signed Impressions: Service Date/Time: Saturday, April 29, 2017 10:26 - CONCLUSION: 1. Diffusely calcified intracranial carotid arteries with likely moderate stenosis on the right. 2. Redemonstration of hypoplastic left A1 segment. 3. No large vessel occlusion or significant intracranial flow-limiting stenosis. Ej Veliz MD Head Magnetic Resonance Angiography 04/29/17 0000 Signed Impressions: Service Date/Time: Saturday, April 29, 2017 14:48 - CONCLUSION: 1. 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 2. Otherwise, intracranial vessels are all patent no aneurysmal disease. No change from prior. Ricky Becerra MD Head CT 04/29/17 0000 Signed Impressions: Service Date/Time: Saturday, April 29, 2017 10:26 - CONCLUSION: Old right parietal stroke. No acute intracranial findings. Musa Zhang MD Carotid Artery Ultrasound 04/29/17 0000 Signed Impressions: Service Date/Time: Saturday, April 29, 2017 15:11 - CONCLUSION: 1. Extensive calcification throughout both carotid systems. 2. Doppler velocities would suggest high-grade stenosis in the external carotid arteries bilaterally. There does not appear to be a hemodynamically significant stenosis in the internal carotid despite the dense calcification, however. 3. Waveforms of the cervical vessels show very little diastolic flow, a pattern more characteristic of the external circulation and suggestive of a high resistance vascular flow. This has progressed from the 2014 exam. Findings in all 4 cervical vessels may indicate increased intracranial pressure. CTA of the cervical vessels could be performed for further characterization if clinically warranted Ricky Becerra MD Brain MRI 04/29/17 0000 Signed Impressions: Service Date/Time: Saturday, April 29, 2017 14:48 - CONCLUSION: 1. Stable area of infarction involving the right posterior temporal, occipital and parietal lobes. 2. No acute hemorrhage, mass infarction. Pastor Mluler MD PE at Discharge GENERAL: This is a well-nourished, well-developed patient, in no apparent distress. SKIN: No rashes, ecchymoses or lesions. Cool and dry. CARDIOVASCULAR: Regular rate and rhythm without murmurs, gallops, or rubs. RESPIRATORY: Clear to auscultation. Breath sounds equal bilaterally. No wheezes , rales, or rhonchi. GASTROINTESTINAL: Abdomen soft, non-tender, nondistended. No guarding. MUSCULOSKELETAL: Extremities without clubbing, cyanosis, or edema. No joint tenderness, effusion, or edema noted. No calf tenderness. Negative Homans sign bilaterally. NEUROLOGICAL: Awake and alert. Cranial nerves II through XII intact. Motor and sensory grossly within normal limits. Five out of 5 muscle strength in all muscle groups. Normal speech. Hospital Course This is a 81-year-old male with a history of TIA, hyperlipidemia and hypertension. He presented with strokelike symptoms resolved over a brief period of time while in the ED. TIA with hx TIA/CVA. Neuro symptoms are resolved. Discussed with neurology, aspirin [address]ox . Stable unremarkable ECHO and EEG. Permissive hypertension. Consulted vascular surgery regarding abnormal bilateral carotid surgery with ulcerated plaque of the right carotid. Dr. Murphy not certain if prophylactic left CEA warranted with negative brain MRI recommended outpatient follow-up with surveillance carotid sonogram. Normal A1c and lipid profile unremarkable LDL 48. Risk factor modifications. PT, OT and ST eval. Mild hyponatremia sodium 134. Monitor Chronic kidney disease stage III. Nonoliguric. Improving status post IV hydration Elevated MCV with history of alcohol abuse. Counseled. CIWA protocol. Chronic medical conditions of hyperlipidemia, hypertension and prostate cancer status post radiation therapy. Continue outpatient medications as appropriate DVT prophylaxis with SCD. Subcutaneous heparin Pt Condition on Discharge: Stable Discharge Disposition: Discharge Home Discharge Time: > 30 minutes Discharge Instructions DIET: Follow Instructions for: Heart Healthy Diet Activities you can perform: Regular-No Restrictions Activities to Avoid: Driving Follow up Referrals: Neurology - 1 Week PCP Follow-up - 1 Week Vascular Surgery - 1 Week New Medications: Dipyridamole-Aspirin (Aggrenox) 200-25 Mg Cap 1 CAP PO Q12HR for Prevent Blood Clot, #60 CAP Thiamine HCl (Gnp Vitamin B-1) 100 Mg Tab 100 MG PO DAILY for Alcohol Detox, #30 TAB Continued Medications: Amlodipine (Amlodipine) 5 Mg Tab 5 MG PO DAILY for Blood Pressure Management, #30 TAB 0 Refills Atorvastatin (Lipitor) 40 Mg Tab 40 MG PO HS for Cholesterol Management, #30 TAB 0 Refills Omeprazole (Omeprazole) 20 Mg Tab 20 MG PO DAILY, #30 TAB 0 Refills Terazosin (Terazosin) 5 Mg Cap 5 MG PO HS, #30 CAP 0 Refills Tucker Merino MD May 01, 2017 11:09
[2017-05-01 11:16] VITALS: RESP 18
[2017-05-01] MEDS ORDERED: TERAZOSIN HCL 5 MG CAP PO SCH (21:00)
--- NOTE | 2017-05-02 14:57 | HM ---
Date Performed: 04/29/2017 Time Performed: 19:05:00 HOOKUP DATE: 04/29/17 07:05:00 PM Tue ANALYSIS START TIME: 04/29/2017 7:10:00 PM ANALYSIS END TIME: 04/30/2017 7:14:00 PM PATIENT AGE: 81 PATIENT HEIGHT PATIENT WEIGHT DRUG LIST PATIENT DIAGNOSIS: tia TEST NARRATIVE: The patient's average heart rate was 74 BPM. Heart rates greater than 120 B PM were noted < 1% of the time. No episodes of bradycardia were noted. No pauses exceeding 2.0 s econds were noted. 91055 ventricular ectopics, which represented 17% of the total beat count, wer e noted. The highest ventricular ectopic frequency occurred from 11:00 AM to 12:00 PM Wed. During t his time 1075 VE(s) occurred. [place] [address] isolated beat(s), as 594 c ouplet(s) and as 55 run(s). Some of the ventricular beats occurred in bigeminal cycles. 79 supra ventricular ectopics, which represented < 1% of the total beat count, were noted. The highest suprav entricular ectopic frequency occurred from 03:00 PM to 04:00 PM Wed. During this time 11 SVE(s) occu rred. No episodes of ST depression (defined as -1.0 mm or more) were noted in channel 1. No epis odes of ST depression (defined as -1.0 mm or more) were noted in channel 2. No episodes of ST depres jeff (defined as -1.0 mm or more) were noted in channel 3. TEST INTERPRETATION: Patient was monitored for 24 hours and 4 minutes. Patient was in normal Sin us rhythm with an average heart rate of 74 bpm. Maximum heart rate was 125 bpm, and the minimum heart rate was 53 bpm. There were 17,164 PVCs, 594 ventricular couplets, and 55 runs of wide complex tachycardia. T here were 73 PACs. There was one 4 beat run of PACs. There were 820 ventricular bigeminy cycles. Signed by : Binh Cade
== END 2017-05-01 11:31 | disposition home or self-care (01) | DRG 69 ==
LOC: NEPE 09:54 → NEDA 12:31 → N05A 16:15
PROVIDERS: ADMIT Internal Medicine; ATTEND Internal Medicine
DX: G45.9 Transient cerebral ischemic attack, unspecified (principal); E87.1 Hypo-osmolality and hyponatremia; N18.3 Chronic kidney disease, stage 3 (moderate); Z95.1 Presence of aortocoronary bypass graft; I25.10 Atherosclerotic heart disease of native coronary artery without angina pectoris; Z86.73 Personal history of transient ischemic attack (TIA), and cerebral infarction without residual deficits; R47.81 Slurred speech; I65.23 Occlusion and stenosis of bilateral carotid arteries; Z79.02 Long term (current) use of antithrombotics/antiplatelets; E78.5 Hyperlipidemia, unspecified; I12.9 Hypertensive chronic kidney disease with stage 1 through stage 4 chronic kidney disease, or unspecified chronic kidney disease; Z98.890 Other specified postprocedural states; Z85.46 Personal history of malignant neoplasm of prostate; Z92.3 Personal history of irradiation; H91.90 Unspecified hearing loss, unspecified ear; K64.8 Other hemorrhoids
CPT/HCPCS: 70450; 70496; 70498; 70544; 70551; 80048; 80061; 82435; 82550; 82565; 82947; 82948; 83036; 83735; 84100; 84132; 84295; 84484; 84520; 85025; 85384; 85610; 85730; 86850; 86900; 86901; 93005; 93225; 93226; 93306; 93880; 95819; J1644; J2060; J7030; Q9967